=== PATIENT | male | born 1960 | race Caucasian/White ===

== ENCOUNTER 2025-03-01 16:00 | Emergency (ER) | payer OTHER ==
[2025-03-01] MEDS ORDERED: ASPIRIN 81 MG CHEWABLE TABLET ONE (16:49)
[2025-03-01 16:51] LABS: Absolute Basophils 0.1 K/uL (0-0.5); Absolute Eosinophils 0.3 K/uL (0-0.5); Absolute Lymphocytes (CBC) 1.2 K/uL (0.7-4.9); Absolute Monocytes 0.6 K/uL (0.1-1.3); Basophils % 1.4 % (0-1.3); Eosinophils % 4.1 % (0-4.4); Hematocrit 42.7 % (39.6-49.0); Hemoglobin 15.3 g/dL (13.6-17.9); MCH 31.3 pg (27.0-35.0); MCHC 35.8 g/dL (32.0-36.0); MCV 87.3 fL (80-100); MPV 7.8 fL (7.6-11.3); Monocytes % 8.5 % (3.3-12.3); Nucleated Red Blood Cells % 0.2 % (0-0); Platelets 200 thou/uL (152-406); RBC Red Blood Cell Count 4.89 M/uL (4.33-5.43); Red Cell Distribution Width 13.5 % (12.1-15.2)
[2025-03-01 17:08] LABS: Anion Gap 7.7 mEq/L (5.0-15.0); Magnesium 1.8 mg/dL (1.6-2.4); Potassium 3.7 mEq/L (3.5-5.1); Troponin High Sensitivity 3.9 pg/mL (<58.9)
--- NOTE | 2025-03-01 18:45 | RAD REPORT ---
EXAMINATION: ONE VIEW CHEST XR CLINICAL INDICATION: Male, 64 years old.,CHEST PAIN TECHNIQUE: Frontal chest projection is submitted. Examination is limited by patient positioning and t echnique. COMPARISON: No prior exam. FINDINGS: The lungs are grossly clear although suboptimal inspiratory effort somewhat limits evaluation. No pn eumothorax or sizable effusion. The heart is normal in size. Mediastinal contours are unremarkable. IMPRESSION: No acute intrathoracic abnormalities.
--- NOTE | 2025-03-01 19:11 | ER ---
Nurse's Notes [facility] Name: Enrico Flaherty Age: 64 yrs Sex: Male : 1960 Arrival Date: 03/01/2025 Time: 16:00 Bed 20 Private MD: Diagnosis: Pain in left shoulder;Pain in right shoulder Presentation: 03/01 16:35 Chief complaint: Patient states: CHEST PAIN TODAY. LAST HEART ATTACK 30 DAYS AGO WITH db STENT. Coronavirus screen: Client denies travel out of the [place] in the last 14 days. At this time, the client does not indicate any symptoms associated with coronavirus-19. Ebola Screen: Patient negative for fever greater than or equal to 101.5 degrees Fahrenheit, and additional compatible Ebola Virus Disease symptoms Patient denies exposure to infectious person. Patient denies travel to an Ebola-affected area in the 21 days before illness onset. No symptoms or risks identified at this time. Initial Sepsis Screen: Does the patient meet any 2 criteria? No. Patient's initial sepsis screen is negative. Does the patient have a suspected source of infection? No. Patient's initial sepsis screen is negative. Risk Assessment: Do you want to hurt yourself or someone else? Patient reports no desire to harm self or others. Onset of symptoms was March 01, 2025. 16:35 Method Of Arrival: Ambulatory db 16:35 Acuity: LARS 2 db Triage Assessment: 16:58 General: Appears in no apparent distress. db Historical: - Allergies: 16:58 No Known Allergies; db - Immunization history:: Adult Immunizations up to date. - Infectious Disease History:: Denies. - Social history:: Smoking status: Patient denies any tobacco usage or history of. Screenin:52 [facility] ED Fall Risk Assessment (Adult) History of falling in the last 3 months, mb9 including since admission No falls in past 3 months (0 pts) Confusion or Disorientation No (0 pts) Intoxicated or Sedated No (0 pts) Impaired Gait No (0 pts) Mobility Assist Device Used No (0 pt) Altered Elimination No (0 pt) Score/Fall Risk Level 0 - 2 = Low Risk Oriented to surroundings, Maintained a safe environment, Educated pt \T\ family on fall prevention, incl call for assistance when getting out of bed. Abuse screen: Denies threats or abuse. Nutritional screening: No deficits noted. Tuberculosis screening: No symptoms or risk factors identified. Assessment: 16:57 General: Appears in no apparent distress. Behavior is calm, cooperative. General:. mb9 Pain: Complains of pain in chest Pain radiates to left neck Quality of pain is described as tingling. Neuro: Hendrickson Agitation-Sedation Scale (RASS): 0 - Alert and Calm Level of Consciousness is awake, alert, obeys commands, Oriented to person, place, time, situation, Appropriate for age. Cardiovascular: Heart tones S1 S2 present Patient's skin is warm and dry. Cardiovascular: Reports chest pain. Respiratory: Airway is patent Respiratory effort is even, unlabored, Respiratory pattern is regular, symmetrical, Breath sounds are clear bilaterally. GI: Abdomen is round Bowel sounds present X 4 quads. Abd is soft and non tender X 4 quads. : No signs and/or symptoms were reported regarding the genitourinary system. EENT: No signs and/or symptoms were reported regarding the EENT system. Derm: Skin is pink, warm \T\ dry. Musculoskeletal: Range of motion: intact in all extremities. 18:00 Reassessment: No changes from previously documented assessment. Patient and/or family mb9 updated on plan of care and expected duration. Pain level reassessed. Patient is alert, oriented x 3, equal unlabored respirations, skin warm/dry/pink. 19:23 Reassessment: Patient states feeling better. Patient states symptoms have improved. rg5 General: Appears in no apparent distress. comfortable, Behavior is calm, cooperative, appropriate for age. Pain: Denies pain. Neuro: Level of Consciousness is awake, alert, obeys commands, Oriented to person, place, time, situation. Cardiovascular: Reports chest pain, Capillary refill < 3 seconds Patient's skin is warm and dry. Rhythm is sinus rhythm. Respiratory: Airway is patent Trachea midline Respiratory effort is even, unlabored, Respiratory pattern is regular, symmetrical. Vital Signs: 16:35 BP 125 / 76; Pulse 97; Resp 16; Pulse Ox 96% ; Weight 113.4 kg; Height 5 ft. 9 in. ; db 16:53 BP 137 / 88; Pulse 94; Resp 18; Pulse Ox 100% ; Weight 113.4 kg; Height 5 ft. 9 in. ; mb9 Pain 0/10; 18:31 BP 118 / 72; Pulse 89; Resp 18; Pulse Ox 100% on R/A; mb9 19:22 BP 121 / 90; Pulse 83; Resp 18; Pulse Ox 100% on R/A; Pain 0/10; rg5 16:53 Body Mass Index 36.92 (113.40 kg, 175.26 cm) mb9 16:53 Pain Scale: Adult mb9 19:22 Pain Scale: Adult rg5 ED Course: 16:06 Patient arrived in ED. gl 16:21 Joel White DO is Attending Physician. ms3 16:35 EKG done, by ED staff, reviewed by Joel White DO. mb9 16:44 Shabana Mitchell, LEODAN is Primary Nurse. mb9 16:46 Basic Metabolic Panel Sent. bc6 16:46 CBC with Diff Sent. bc6 16:46 Magnesium Sent. bc6 16:46 Troponin HS Sent. bc6 16:46 Initial lab(s) drawn, by ks, sent to lab. Inserted saline lock: 20 gauge in left bc6 antecubital area, using aseptic technique. Blood collected. Flushed with 10 mL NS. 16:52 Placed in gown. Bed in low position. Call light in reach. Side rails up X 1. Provided mb9 Education on: press call light if needing anything. Client placed on continuous cardiac and pulse oximetry monitoring. NIBP monitoring applied. coagulator on. 16:58 Triage completed. db 16:58 Arm band placed on. mb9 16:59 XRAY Chest (1 view) In Process Unspecified. EDMS 18:53 No provider procedures requiring assistance completed. mb9 19:10 Orville Alexis MD is Referral Physician. ms3 19:23 IV discontinued, bleeding controlled, No redness/swelling at site. Pressure dressing rg5 applied. Administered Medications: 16:56 Drug: Aspirin PO Chewable Tablet 324 mg PO once; 81 mg tablets x 4 Route: PO; mb9 18:53 Follow up: Response: No adverse reaction mb9 Medication: 16:53 VIS not applicable for this client. mb9 Outcome: 19:11 Discharge ordered by . ms3 19:30 Discharged to home ambulatory, rg5 19:30 Condition: stable 19:30 Instructed on discharge instructions, Demonstrated understanding of instructions, follow-up care, 19:32 Patient left the ED. rg5 Signatures: Dispatcher [employer] EDMS Joel White, DO ms3 Mayte Dubon RN RN db Paula, Shabana May RN RN mb9 Rachel Andino 6 Talon Nieto RN RN rg5 Eri Joe, Reg Reg gl Corrections: (The following items were deleted from the chart) 16:57 16:53 BP 137 / 88; Pulse 94bpm; Resp 18bpm; Pulse Ox 100%; mb9 mb9
--- NOTE | 2025-03-01 19:11 | EDPHYS ---
Physician Documentation [facility] Name: Enrico Flaherty Age: 64 yrs Sex: Male : 1960 Arrival Date: 03/01/2025 Time: 16:00 Bed 20 Private MD: ED Physician Joel White HPI: 03/01 20:28 This 64 yrs old Male presents to ER via Ambulatory with complaints of Numbness Of Arm, ms3 PREVIOUS HEART ATTACK. 20:28 64-year-old male with past medical history of myocardial infarction, hypertension, ms3 diabetes, peptic ulcer disease presents to the emergency department for right tingling in his chest, left neck pain and bilateral shoulder pain for 3 days. Patient states the discomfort is intermittent. Patient denies the pain at this time.. Historical: - Allergies: 16:58 No Known Allergies; db - Immunization history:: Adult Immunizations up to date. - Infectious Disease History:: Denies. - Social history:: Smoking status: Patient denies any tobacco usage or history of. ROS: 20:28 Constitutional: Negative for fever, and chills. Cardiovascular: Negative for chest ms3 pain, and palpitations. Respiratory: Negative for shortness of breath, cough, wheezing, and pleuritic chest pain, Abdomen/GI: Negative for abdominal pain, nausea, vomiting, diarrhea, and constipation, 20:28 MS/extremity: Positive for Bilateral shoulder pain, left neck pain, Exam: 20:28 Constitutional: This is a well developed, well nourished patient who is awake, alert, ms3 and in no acute distress. Cardiovascular: Regular rate and rhythm with a normal S1 and S2. No gallops, murmurs, or rubs. Normal PMI, no JVD. No pulse deficits. Respiratory: Lungs have equal breath sounds bilaterally, clear to auscultation and percussion. No rales, rhonchi or wheezes noted. No increased work of breathing, no retractions or nasal flaring. Abdomen/GI: Soft, non-tender, with normal bowel sounds. No distension or tympany. No guarding or rebound. No evidence of tenderness throughout. Skin: Warm, dry with normal turgor. Normal color with no rashes, no lesions, and no evidence of cellulitis. MS/ Extremity: Pulses equal, no cyanosis. Neurovascular intact. Full, normal range of motion. 20:40 ECG was reviewed by the Attending Physician. ms3 Vital Signs: 16:35 BP 125 / 76; Pulse 97; Resp 16; Pulse Ox 96% ; Weight 113.4 kg; Height 5 ft. 9 in. ; db 16:53 BP 137 / 88; Pulse 94; Resp 18; Pulse Ox 100% ; Weight 113.4 kg; Height 5 ft. 9 in. ; mb9 Pain 0/10; 18:31 BP 118 / 72; Pulse 89; Resp 18; Pulse Ox 100% on R/A; mb9 19:22 BP 121 / 90; Pulse 83; Resp 18; Pulse Ox 100% on R/A; Pain 0/10; rg5 16:53 Body Mass Index 36.92 (113.40 kg, 175.26 cm) mb9 16:53 Pain Scale: Adult mb9 19:22 Pain Scale: Adult rg5 MDM: 16:31 Medical Screening Exam initiated ms3 20:28 Differential diagnosis: tendonitis, SD versus pneumonia. Data reviewed: vital signs, ms3 nurses notes, lab test result(s), EKG, radiologic studies, and as a result, I will discharge patient. I considered the following discharge prescriptions or medication management in the emergency department Medications were administered in the Emergency Department. See MAR. Independent interpretation of the following test(s) in the Emergency Department EKG: See my EKG interpretation above. Counseling: I had a detailed discussion with the patient and/or guardian regarding the historical points, exam findings, and any diagnostic results supporting the discharge/admit diagnosis, lab results, radiology results, the need for outpatient follow up, to return to the emergency department if symptoms worsen or persist or if there are any questions or concerns that arise at home. Special discussion: Based on the patient's history, exam, and Dx evaluation, there is no indication for emergent intervention or inpatient Tx. It is understood by the patient/guardian that if the Sx's persist or worsen they need to return immediately for re-evaluation. ED course: Discussed labs, EKG, chest x-ray findings with patient. Patient to follow-up with primary care physician in 2 to 3 days. Patient understands and agrees with plan. All questions were answered. Return precautions discussed to include worsening symptoms, or any other concerns. On reevaluation patient is asymptomatic, alert and oriented x 4, no apparent distress, nontoxic-appearing, speaking full sentences.. 03/01 16:33 Order name: Basic Metabolic Panel; Complete Time: 18:50 ms3 03/01 16:33 Order name: CBC with Diff; Complete Time: 18:50 ms3 03/01 16:33 Order name: Magnesium; Complete Time: 18:50 ms3 03/01 16:33 Order name: Troponin HS; Complete Time: 18:50 ms3 03/01 16:33 Order name: XRAY Chest (1 view); Complete Time: 18:50 ms3 03/01 16:33 Order name: EKG; Complete Time: 16:33 ms3 03/01 16:33 Order name: Cardiac monitoring; Complete Time: 16:46 ms3 03/01 16:33 Order name: EKG - Nurse/Tech; Complete Time: 16:46 ms3 03/01 16:33 Order name: IV Saline Lock; Complete Time: 16:46 ms3 03/01 16:33 Order name: Labs collected and sent; Complete Time: 16:46 ms3 03/01 16:33 Order name: O2 Per Protocol; Complete Time: 16:46 ms3 03/01 16:33 Order name: O2 Sat Monitoring; Complete Time: 16:46 ms3 EC:40 Rate is 93 beats/min. Rhythm is regular. QRS [place] is Normal. MA interval is normal. QRS ms3 interval is normal. Clinical impression: NSR w/ Non-specific ST/T Changes. Interpreted by me. Reviewed by me. Administered Medications: 16:56 Drug: Aspirin PO Chewable Tablet 324 mg PO once; 81 mg tablets x 4 Route: PO; mb9 18:53 Follow up: Response: No adverse reaction mb9 Disposition Summary: 03/01/25 19:11 Discharge Ordered Notes: Location: Home ms3 Condition: Stable ms3 Diagnosis - Pain in left shoulder ms3 - Pain in right shoulder ms3 Followup: ms3 - With: Orville Alexis MD - When: 2 - 3 days - Reason: Recheck today's complaints Discharge Instructions: - Discharge Summary Sheet ms3 - Nonspecific Chest Pain, Adult ms3 - Shoulder Pain, [id number] ms3 Forms: - Medication Reconciliation Form ms3 - Antibiotic Education ms3 - Prescription Opioid Use ms3 - Patient Portal Instructions ms3 - Leadership Thank You Letter ms3 Signatures: Dispatcher [employer] EDMS WhiteJoel, DO ms3 Mayte Dubon RN RN db Shabana Mitchell RN RN mb9 Corrections: (The following items were deleted from the chart) 20:29 20:28 64-year-old male with past medical history of myocardial infarction, ms3 hypertension, diabetes, peptic ulcer disease presents to the emergency department for right tingling in his chest, left neck pain and bilateral shoulder pain. Patient states the discomfort is intermittent. Patient denies the pain at this time.. ms3
[2025-03-01 20:08] VITALS: BP 122/85; TEMP 97.3; O2SAT 95
--- OUTSIDE RECORDS SUMMARY | 2025-03-01 21:18 | XMS REPORT | Continuity of Care Document ---
Author Name Unknown Address [address] Address [address] [facility] 1 495 [place] [address] Care Team Providers Care Abrasive Band Winder Name Role Phone Rito Lockwood Attending Clinician Unavailable Rito Lockwood Admitting Clinician Unavailable Physician, No Primary or Family Admitting Clinic juan Unavailable Payers Payer Name Policy Type Policy Number Effective Date Expirati on Date Source Allergies, Adverse Reactions, Alerts Allergy Name Allergy Type Status Severity Reaction(s) Onset Date Inactive Date Treating Clinician Comments Source naproxen DA Active [place] BLEEDING ULCER 01-31 00:00: 00 [facility] naproxen DA Active U BLEEDING ULCER 01-30 00:00: 00 [facility] Procedures Procedure Date / Time Performed Performing Clinicia n Source GAIT TRAINING/AMBULAT TREATMENT USING ASSIST EQUIP 2025-01-31 00:00:00 [email or web address] [facility] DILATION OF 1 COR ART WITH DRUG-ELUT INTRA, PERC A 2025-01-30 00:00:00 [email or web address] [facility] DILATION OF CORONARY ARTERY, ONE ARTERY, PERC APPR 2025-01-30 00:00:00 [email or web address] [facility] MEASURE OF CARDIAC SAMPL PRESSURE, L HEART, PERC 2025-01-30 00:00:00 [email or web address] [facility] FLUOROSCOPY OF MULT COR ART USING L OSM CONTRAST 2025-01-30 00:00:00 [email or web address] [facility] Encounters Start Date/Time End Date/Time Encounter Type Admission Type Attending Clinicians Care Facility Care Department Encounter ID Source 2025-01-30 19:42:00 2025-02-01 11:29:00 Inpatient EM Rito Lockwood HCAPM INTE [id number] [facility] 2025-01-31 05:26:00 2025-01-31 05:26:00 Outpatient Rito Lockwood HCACL LABO [id number] [facility] Results Test Description Test Time Test Comments Results Result Co mments Source BASIC METABOLIC [id number] 03:49:00* Test Item Value Reference Range Interpretation Comme nts SODIUM (test code = NA) 138 mmol/L 136-145 N POTASSIUM (test code = K) 3.9 mmol/L 3.4-5.0 N CHLORIDE (test code = CL) 102 mmol/L 98-107 N CARBON DIOXIDE (test code = CO2) 25 mmol/L 21-32 N ANION GAP (test code = GAP) 11 GAP calc 4-15 N GLUCOSE (test code = GLU) 152 MG/DL 70-110 H BLOOD UREA NITROGEN (test code = BUN) 14 MG/DL 7-18 N GLOMERULAR FILTRATION RATE (test code = GFR) >=60 max estimate estGFR >60 The Glomerular Filtration Rate is a calculated parameterbased on serum Creatinine, patient age and sex. GFR valuesless than 60 mL/min/1.73 square meters are indicative ofChronic Kidney Disease. Values less than 15 mL/min/1.73square meters indicate Kidney failure. The calculation forGFR is based on the CKD-EPI (2020) calculation. This formulais race indifferent and is the recommended formula for GFRby the National Kidney Foundation for Adults.The GFR will not calculate if the sex is unknown or if thepatient's age is <18 years. CREATININE (test code = CREAT) 1.1 MG/DL 0.6-1.0 H CALCIUM (test code = CA) 8.9 MG/DL 8.5-10.1 N [id number] 03:49:00* Test Item Value Reference Range Interpretation Comme nts PHOSPHOROUS (test code = PHOS) 4.4 MG/DL 2.5-4.9 N [id number] 03:49:00* Test Item Value Reference Range Interpretation Comme nts MAGNESIUM (test code = MAG) 2.3 MG/DL 1.8-2.4 N CBC W/AUTO [id number] 03:39:00* Test Item Value Reference Range Interpretation Comme nts WHITE BLOOD CELL (test code = WBC) 7.8 K/mm3 3.5-11.0 N RED BLOOD CELL (test code = RBC) 4.53 M/mm3 4.70-6.10 L HEMOGLOBIN (test code = HGB) 14.1 G/DL 12.3-15.9 N HEMATOCRIT (test code = HCT) 40.6 % 35.8-46.7 N MEAN CELL VOLUME (test code = MCV) 89.6 Fl 86.3-98.9 N MEAN CELL HGB (test code = MCH) 31.1 pg 28.9-34.4 N MEAN CELL HGB CONCETRATION (test code = MCHC) 34.7 G/DL 32.1-34.5 H RED CELL DISTRIBUTION WIDTH (test code = RDW) 12.4 SD 11.5-14.5 N PLATELET COUNT (test code = PLT) 219 K/mm3 150-450 N MEAN PLATELET VOLUME (test c ode = MPV) 10.20 fL 7.0-9.6 H NEUTROPHIL % (test code = NT%) 68.6 % 40-76 N IMMATURE GRANULOCYTE % (test code = IG%) 0.6 % 0.0-5.0 N LYMPHOCYTE % (test code = LY%) 19.0 % 20.5-51.1 L MONOCYTE % (test code = MO%) 8.4 % 1.7-9.3 N EOSINOPHIL % (test code = EO%) 2.8 % 0.0-6.0 N BASOPHIL % (test code = BA%) 0.6 % 0.0-2.0 N NUCLEATED RBC % (test code = NRBC%) 0.0 /100WBC% 0.0-1.0 N NEUTROPHIL # (test code = NT#) 5.3 K/mm3 1.8-7.6 N IMMATURE GRANULOCYTE # (test code = IG#) 0.05 x10 3/uL 0.00-0.03 H LYMPHOCYTE # (test code = LY#) 1.5 K/mm3 0.6-3.0 N MONOCYTE # (test code = MO#) 0.7 K/mm3 0.2-1.5 N EOSINOPHIL # (test code = EO#) 0.2 K/mm3 0.0-0.4 N BASOPHIL # (test code = BA#) 0.1 K/mm3 0.0-0.2 N NUCLEATED RBC # (test code = NRBC#) 0.0 K/mm3 0.00-0.01 N GLUCOSE BEDSIDE [id number] 20:45:00* Test Item Value Reference Range Interpretation Comme nts GLUCOSE BEDSIDE TESTING (michael t code = GLUBED) 171 mg/dL 70-110 H GLUCOSE BEDSIDE [id number] 17:37:00* Test Item Value Reference Range Interpretation Comme nts GLUCOSE BEDSIDE TESTING (michael t code = GLUBED) 129 mg/dL 70-110 H GLUCOSE BEDSIDE [id number] 12:13:00* Test Item Value Reference Range Interpretation Comme nts GLUCOSE BEDSIDE TESTING (imchael t code = GLUBED) 124 mg/dL 70-110 H GLUCOSE BEDSIDE [id number] 08:05:00* Test Item Value Reference Range Interpretation Comme nts GLUCOSE BEDSIDE TESTING (michael t code = GLUBED) 186 mg/dL 70-110 H CBC W/AUTO [id number] 01:51:00* Test Item Value Reference Range Interpretation Comme nts WHITE BLOOD CELL (test code = WBC) 10.9 K/mm3 3.5-11.0 N RED BLOOD CELL (test code = RBC) 4.52 M/mm3 4.70-6.10 L HEMOGLOBIN (test code = HGB) 13.9 G/DL 12.3-15.9 N HEMATOCRIT (test code = HCT) 40.0 % 35.8-46.7 N MEAN CELL VOLUME (test code = MCV) 88.5 Fl 86.3-98.9 N MEAN CELL HGB (test code = MCH) 30.8 pg 28.9-34.4 N MEAN CELL HGB CONCETRATION (test code = MCHC) 34.8 G/DL 32.1-34.5 H RED CELL DISTRIBUTION WIDTH (test code = RDW) 12.3 SD 11.5-14.5 N PLATELET COUNT (test code = PLT) 207 K/mm3 150-450 N MEAN PLATELET VOLUME (test c ode = MPV) 10.20 fL 7.0-9.6 H NEUTROPHIL % (test code = NT%) 72.9 % 40-76 N IMMATURE GRANULOCYTE % (test code = IG%) 0.6 % 0.0-5.0 N LYMPHOCYTE % (test code = LY%) 15.1 % 20.5-51.1 L MONOCYTE % (test code = MO%) 9.6 % 1.7-9.3 H EOSINOPHIL % (test code = EO%) 1.4 % 0.0-6.0 N BASOPHIL % (test code = BA%) 0.4 % 0.0-2.0 N NUCLEATED RBC % (test code = NRBC%) 0.0 /100WBC% 0.0-1.0 N NEUTROPHIL # (test code = NT#) 8.0 K/mm3 1.8-7.6 H IMMATURE GRANULOCYTE # (test code = IG#) 0.07 x10 3/uL 0.00-0.03 H LYMPHOCYTE # (test code = LY#) 1.7 K/mm3 0.6-3.0 N MONOCYTE # (test code = MO#) 1.1 K/mm3 0.2-1.5 N EOSINOPHIL # (test code = EO#) 0.2 K/mm3 0.0-0.4 N BASOPHIL # (test code = BA#) 0.0 K/mm3 0.0-0.2 N NUCLEATED RBC # (test code = NRBC#) 0.0 K/mm3 0.00-0.01 N [id number] 01:13:00* Test Item Value Reference Range Interpretation Comme nts GLYCOSYLATED HEMOGLOBIN (HA1 C) (test code = GLYHGB) 6.5 % A1C 4.8-6.0 H ESTIMATED AVERAGE GLUCOSE (t est code = EAG) 140 MG/DLest COMPREHENSIVE METABOLIC [id number] 01:12:00* Test Item Value Reference Range Interpretation Comme nts SODIUM (test code = NA) 136 mmol/L 136-145 N POTASSIUM (test code = K) 3.7 mmol/L 3.4-5.0 N CHLORIDE (test code = CL) 99 mmol/L 98-107 N CARBON DIOXIDE (test code = CO2) 28 mmol/L 21-32 N ANION GAP (test code = GAP) 9 GAP calc 4-15 N GLUCOSE (test code = GLU) 146 MG/DL 70-110 H BLOOD UREA NITROGEN (test code = BUN) 13 MG/DL 7-18 N GLOMERULAR FILTRATION RATE (test code = GFR) >=60 max estimate estGFR >60 The Glomerular Filtration Rate is a calculated parameterbased on serum Creatinine, patient age and sex. GFR valuesless than 60 mL/min/1.73 square meters are indicative ofChronic Kidney Disease. Values less than 15 mL/min/1.73square meters indicate Kidney failure. The calculation forGFR is based on the CKD-EPI (2020) calculation. This formulais race indifferent and is the recommended formula for GFRby the National Kidney Foundation for Adults.The GFR will not calculate if the sex is unknown or if thepatient's age is <18 years. CREATININE (test code = CREAT) 0.9 MG/DL 0.6-1.0 N TOTAL PROTEIN (test code = PROT) 6.7 G/DL 6.4-8.2 N ALBUMIN (test code = ALB) 3.6 G/DL 3.4-5.0 N GLOBULIN (test code = GLOB) 3.1 GM/dL ALBUMIN/GLOBULIN RATIO (test code = A/G) 1.2 RATIO 1.2-2.2 N CALCIUM (test code = CA) 8.5 MG/DL 8.5-10.1 N BILIRUBIN TOTAL (test code = BILT) 1.2 MG/DL 0.0-1.0 H SGOT/AST (test code = AST) 23 Unit/L 15-37 N SGPT/ALT (test code = ALT) 39 Unit/L 30-65 N ALKALINE PHOSPHATASE TOTAL (test code = ALKP) 103 Unit/L 50-136 N LIPID PROFILE (CORONARY RISK)2025-01-31 01:12:00* Test Item Value Reference Range Interpretation Comme nts TRIGLYCERIDES (test code = TRIG) 213 MG/DL 0-150 H CHOLESTEROL (test code = CHOL) 129 MG/DL 133-200 L CHOLESTEROL/HDL RATIO (test code = CHOLHDL) 2.48 RATIO See_Comment RISK ASSOC IATED WITH CHOL/HDL RATIOS: RISK MALE FEMALE1/2 AVERAGE 3.43 3.27AVERAGE 4.97 4.442X AVERAGE 9.55 7.053X AVERAGE 23.39 11.04 NOTE THAT THE REFERENCE VALUE IS RELATED TO RISK LEVELS ASRECOMMENDED BY THE [facility]ATIONAL [facility]. [Automated message] The system which generated this result transmitted reference range: 0-. The reference range was not used to interpret this result as normal/abnormal. HDL CHOLESTEROL (test code = HDL) 52 MG/DL See_Comment L [Automated activ8 [employer]a [facility]] The system which generated this result transmitted reference range: 60-. The reference range was not used to interpret this result as normal/abnormal. NON-HDL CHOLESTEROL (test code = NHDL) 77 mg/dL <130 LIPOPROTEIN LDL (test code = LDL) 57 MG/DL 0-129 N LDL/HDL (test code = LDL/HDL) 1.09 Ratio See_Comment L [Automated [employer]] The system which generated this result transmitted reference range: 1.48-3.22 Avg. The reference range was not used to interpret this result as normal/abnormal. [id number] 01:12:00* Test Item Value Reference Range Interpretation Comme nts PHOSPHOROUS (test code = PHOS) 3.5 MG/DL 2.5-4.9 N [id number] 01:12:00* Test Item Value Reference Range Interpretation Comme nts MAGNESIUM (test code = MAG) 1.6 MG/DL 1.8-2.4 L COAGULATION TIME [id number] 20:27:00* Test Item Value Reference Range Interpretation Comme nts COAGULATION TIME ACTIVATED ( test code = ACT) 292 SEC 110-182 H COAGULATION TIME [id number] 20:02:00* Test Item Value Reference Range Interpretation Comme nts COAGULATION TIME ACTIVATED ( test code = ACT) 361 SEC 110-182 H PROTHROMBIN [id number] 19:40:00* Test Item Value Reference Range Interpretation Comme nts PT PATIENT (test code = PTP) 10.6 SECONDS 9.3-12.9 N INTERNATIONAL NORMAL RATIO (test code = INR) 0.95 INR Unit 0.8-1.2 N TARGET INR BY INDICATION Indication INR1. Prophylaxis of venous thrombosis 2.0 - 3.0 (orthopedic surgery), Prophylaxis of venous thrombosis (other than high-risk surgery), Treatment of Deep Vein Thrombosis/Pulmonary Embolism, Prevention of systemic embolism - Tissue heart valves, Acute Myocardial Infarction (to prevent systemic embolism), Valvular heart disease, Acute Myocardial Infarction (to prevent systemic embolism), Valvular heart disease, Atrial Fibrillation, Bileaflet mechanical valve in aortic position.2. Mechanical prosthetic valves (high risk), 2.5 - 3.5 Presence of Lupus Anticoagulant or Antiphospholipid Antibodies, Prevention of systemic embolism - Acute Myocardial Infarction (to prevent recurrent infarct). THROMBOPLASTIN TIME [id number] 19:40:00* Test Item Value Reference Range Interpretation Comme nts THROMBOPLASTIN TIME PARTIAL (test code = PTT) 28.7 SECONDS 26-35 N BASIC METABOLIC [id number] 19:35:00* Test Item Value Reference Range Interpretation Comme nts SODIUM (test code = NA) 138 mmol/L 136-145 N POTASSIUM (test code = K) 4.0 mmol/L 3.4-5.0 N CHLORIDE (test code = CL) 99 mmol/L 98-107 N CARBON DIOXIDE (test code = CO2) 31 mmol/L 21-32 N ANION GAP (test code = GAP) 8 GAP calc 4-15 N GLUCOSE (test code = GLU) 154 MG/DL 70-110 H BLOOD UREA NITROGEN (test code = BUN) 15 MG/DL 7-18 N GLOMERULAR FILTRATION RATE (test code = GFR) >=60 max estimate estGFR >60 The Glomerular Filtration Rate is a calculated parameterbased on serum Creatinine, patient age and sex. GFR valuesless than 60 mL/min/1.73 square meters are indicative ofChronic Kidney Disease. Values less than 15 mL/min/1.73square meters indicate Kidney failure. The calculation forGFR is based on the CKD-EPI (2020) calculation. This formulais race indifferent and is the recommended formula for GFRby the National Kidney Foundation for Adults.The GFR will not calculate if the sex is unknown or if thepatient's age is <18 years. CREATININE (test code = CREAT) 1.0 MG/DL 0.6-1.0 N CALCIUM (test code = CA) 8.9 MG/DL 8.5-10.1 N CREATINE KINASE (CK)2025-01-30 19:35:00* Test Item Value Reference Range Interpretation Comme nts CREATINE KINASE (CK) (test c ode = CK) 81 Unit/L 21-215 N TROP-I HIGH [id number] 19:35:00* Test Item Value Reference Range Interpretation Comme nts TROP-I HIGH SENSITIVITY (test code = TROPIHS) 6.2 ng/L 0-78 N CAUTION: Units o f the current test methodology (ng/L) differfrom the prior test methodology (ng/mL) by a factor of 1000. 99th Percentile Upper Reference Limit (URL):Females: 54 ng/LMales: 79 ng/L In order to distinguish acute elevations of high sensitivitytroponin from other clinical conditions, the FourthUniversal Definition of Myocardial Infarction stressesclinical assessment and the demonstration of a rise and/orfall in serial troponin results above the URL. Results from different methodologies should not be comparedto one another as quantitative results and URLs may varyby method. CBC W/O [id number] 19:19:00* Test Item Value Reference Range Interpretation Comme nts WHITE BLOOD CELL (test code = WBC) 14.6 K/mm3 3.5-11.0 H RED BLOOD CELL (test code = RBC) 4.86 M/mm3 4.70-6.10 N HEMOGLOBIN (test code = HGB) 15.3 G/DL 12.3-15.9 N HEMATOCRIT (test code = HCT) 43.6 % 35.8-46.7 N MEAN CELL VOLUME (test code = MCV) 89.7 Fl 86.3-98.9 N MEAN CELL HGB (test code = MCH) 31.5 pg 28.9-34.4 N MEAN CELL HGB CONCETRATION ( test code = MCHC) 35.1 G/DL 32.1-34.5 H RED CELL DISTRIBUTION WIDTH (test code = RDW) 12.2 SD 11.5-14.5 N PLATELET COUNT (test code = PLT) 221 K/mm3 150-450 N MEAN PLATELET VOLUME (test c ode = MPV) 10.00 fL 7.0-9.6 H Notes Date/Time Note Provider Source 2025-02-01 08:45:00 [facility] ([facility]) Pulmonology Progress Note REPORT#:[id number] REPORT STATUS: Signed REPORT INITIALIZATION DATE:02/01/25 TIME:844 PATIENT: SHERIDAN HEATON UNIT #: [id number] ROOM/BED: [place] [id number] : 60 AGE: 64 SEX: M ATTEND: Rito Lockwood MD ADM AUTHOR: Forrest Sanchez MD REPT SERVICE DT/TIME: 02/01/25 0845 * ALL edits or amendments must be made on the electronic/computer document * Subjective Chief complaint: no chest pain No distress HPI: 64-year-old obese male with past medical history of hypertension, diabetes, ROBERT, pericarditis (2009), GI bleed/gastric ulcer, CAD s/p stent(2019), IBS-D and hyperlipidemia presented as a transfer from [facility] for management of high risk chest pain. Patient reports developing left-sided squeezing chest pain with radiation to left side of neck that began at around 6: 30 AM. Pain was also pleuritic. States it felt similar to his previous episode of pericarditis. . Patient reports having left-sided neck spasms intermittently for the last few weeks. Denies shortness of breath, Cath done and PCI left circiumflex Review of Systems ROS All systems rev neg: except as marked Objective General VS/I O: Last Documented: Result Date Time Temp 36.7 02/01 0700 Pulse Ox 96 02/01 0700 B/P 93/52 02/01 0700 B/P Mean 66 02/01 0700 Pulse 71 02/01 0700 FiO2 21 02/01 0642 O2 Delivery Room air 02/01 0642 Resp 24 01/30 2215 O2 Flow Rate 2 01/30 1931 24 hour I O ending at 0700: 02/01 0700 01/31 1900 Intake Total 1000 1100 Output Total Balance 1000 1100 Intake, Free Water Intake, IV Intake, Oral 1000 1100 Intake, Tube Feeding Number 1 Bowel Movements Number Voids 1 4 Output, Urine PATIENT WEIGHT: Weight (lb): Weight (oz): Weight (kg): 118.182 Medications: Active Meds + DC'd Last 24 Hrs Famotidine (PEPCID) 20 MG DAILY PO Dextrose (GLUCOSE) 4 GM ASDIR PRN PO Dextrose/Water (DEXTROSE 10% IN WATER 250 ML) 250 ML ASDIR IV Glucagon (GLUCAGON) 1 MG ASDIR PRN IM Colchicine (COLCRYS) 0.6 MG BID PO Heparin Sodium (Porcine) (HEPARIN SODIUM) 5,000 UNIT Q12H SUBQ Carvedilol (COREG) 12.5 MG Q12HR PO Lisinopril (ZESTRIL) 10 MG Q12HR PO Aspirin (ECOTRIN) 81 MG DAILY PO Clopidogrel Bisulfate (Plavix) 75 MG DAILY PO Dapagliflozin (Farxiga) 10 MG DAILY PO Folic Acid (FOLIC ACID) 1 MG DAILY PO Glipizide (GLUCOTROL) 5 MG DAILY PO Multivitamins Therapeutic (THERAGRAN) 1 TAB DAILY PO Mupirocin (BACTROBAN) 1 APPLIC BID NASAL Pantoprazole (PROTONIX) 40 MG DAILY PO (DC) Thiamine HCl (THIAMINE) 100 MG DAILY PO Insulin Human Lispro (Admelog) 0 AC HS SUBQ Perflutren Lipid Microsphere (DEFINITY) 2 ML ONCE PRN IV (CKD) Nitroglycerin (NITROSTAT) 0.4 MG Q5M PRN PRN SL Magnesium Oxide (MAG-OX 400) 1,200 MG ASDIR PRN PO (CKD) Magnesium Sulfate (MAGNESIUM SULFATE 2 G IN SWFI 50 ML) 50 ML ASDIR PRN IV Magnesium Sulfate (MAGNESIUM SULFATE) 4 GM ASDIR PRN IV Sodium Chloride (SODIUM CHLORIDE 0.9%) 100 ML Phosphorus (K-PHOS NEUTRAL) 1,500 MG ASDIR PRN PO Phosphorus (K-PHOS NEUTRAL) 2,000 MG ASDIR PRN PO Potassium Chloride (POTASSIUM CHLORIDE 10 MEQ/SWFI 50 ML) 50 ML ASDIR PRN IV Potassium Chloride (KCL 20 MEQ/SWFI 100 ML) 100 ML ASDIR PRN IV Potassium Chloride (KCL 20 MEQ/SWFI 100 ML) 100 ML ASDIR PRN IV Potassium Chloride (KCL 20 MEQ/SWFI 100 ML) 100 ML ASDIR PRN IV Potassium Chloride (K-DUR 20 mEq) 20 MEQ ASDIR PRN PO Potassium Chloride (K-DUR 20 mEq) 40 MEQ ASDIR PRN PO Potassium Phosphate (POTASSIUM PHOSPHATE) 20 MMOL ASDIR PRN IV Sodium Chloride (SODIUM CHLORIDE 0.9%) 250 ML Potassium Phosphate (POTASSIUM PHOSPHATE) 30 MMOL ASDIR PRN IV Sodium Chloride (SODIUM CHLORIDE 0.9%) 250 ML Sodium Biphosphate (SODIUM PHOSPHATE) 20 MMOL ASDIR PRN IV Sodium Chloride (SODIUM CHLORIDE 0.9%) 250 ML Sodium Biphosphate (SODIUM PHOSPHATE) 30 MMOL ASDIR PRN IV Sodium Chloride (SODIUM CHLORIDE 0.9%) 250 ML Sodium Phosphate (SODIUM PHOS 15 MMOL/ NS 250ML) 250 ML ASDIR PRN IV Undefined Medication (POTASSIUM PHOS 15 MMOL/ NS 250ML) 250 ML ASDIR PRN IV Acetaminophen (TYLENOL) 650 MG Q4H PRN PRN PO Hydrocodone Bitart/Acetaminophen (NORCO 5/325) 1 TAB Q6H PRN PRN PO Melatonin (Melatonin) 3 MG BEDTIME PRN PRN PO Ondansetron HCl (ZOFRAN) 4 MG Q6H PRN PRN IV Atorvastatin Calcium (LIPITOR) 80 MG BEDTIME PO Physical Exam General appearance: alert, awake ENT: ENT: normal ear right, normal nose, normal pharynx, normal sinus Neck: full range of motion, non-tender, supple/no meningismus, no JVD Respiratory/chest: clear to auscultation, no distress, no tenderness Abdomen: soft, non-tender, normal bowel sounds, no distention Extremities: no calf tenderness, no edema Results Findings/Data: Laboratory Tests 02/01/25 0305: [Embedded Image Not Available] Laboratory Tests 02/01 02/01 01/31 01/31 01/31 0738 0305 2037 1657 1159 Chemistry Sodium (136 - 145 mmol/L) 138 Potassium (3.4 - 5.0 mmol/L) 3.9 Chloride (98 - 107 mmol/L) 102 Carbon Dioxide (21 - 32 mmol/L) 25 Anion Gap (4 - 15 GAP calc) 11 BUN (7 - 18 MG/DL) 14 Creatinine (0.6 - 1.0 MG/DL) 1.1 H Glomerular Filtr Rate (>60 >=60 max estimate estGFR) Glucose (70 - 110 MG/DL) 152 H POC Glucose (70 - 110 mg/dL) 145 H 171 H 129 H 124 H Calcium (8.5 - 10.1 MG/DL) 8.9 Phosphorus (2.5 - 4.9 MG/DL) 4.4 Magnesium (1.8 - 2.4 MG/DL) 2.3 Laboratory Tests 02/01 0305 Hematology WBC (3.5 - 11.0 K/mm3) 7.8 RBC (4.70 - 6.10 M/mm3) 4.53 L Hgb (12.3 - 15.9 G/DL) 14.1 Hct (35.8 - 46.7 %) 40.6 MCV (86.3 - 98.9 Fl) 89.6 MCH (28.9 - 34.4 pg) 31.1 MCHC (32.1 - 34.5 G/DL) 34.7 H RDW (11.5 - 14.5 SD) 12.4 Plt Count (150 - 450 K/mm3) 219 MPV (7.0 - 9.6 fL) 10.20 H Neut % (Auto) (40 - 76 %) 68.6 Lymph % (Auto) (20.5 - 51.1 %) 19.0 L [place] % (Auto) (1.7 - 9.3 %) 8.4 Eos % (Auto) (0.0 - 6.0 %) 2.8 Baso % (Auto) (0.0 - 2.0 %) 0.6 Neut # (Auto) (1.8 - 7.6 K/mm3) 5.3 Lymph # (Auto) (0.6 - 3.0 K/mm3) 1.5 [place] # (Auto) (0.2 - 1.5 K/mm3) 0.7 Eos # (Auto) (0.0 - 0.4 K/mm3) 0.2 Baso # (Auto) (0.0 - 0.2 K/mm3) 0.1 Abs Immat Gran (auto) (0.00 - 0.03 x10 3/uL) 0.05 H Immature Gran % (0.0 - 5.0 %) 0.6 Nucleated RBC % (0.0 - 1.0 /100WBC%) 0.0 Diagnosis, Assessment Plan Free Text A P: 1.STEMI 2. DM 3. ROBERT on CPAP 13 cm H2O 4. HTN Seen examined patient SP STEnt DG to Tele PTOT fully independant plavix , ASA Start lovenox DG to IMU BIPAP QHS Quality: Gen Med Crit Care VTE Prophylaxis VTE prophylaxis initiated: yes, no pharmacologic, reason: Current Medications Current medication review: I attest that the foregoing medication list in the medical record is true, accurate, and complete to the best of my knowledge. BMI Screening > 25 or < 18.5 BMI status/follow-up: abnl BMI, pt to F/U w/PCP at 0923 RPT #: [id number] END OF RE[facility] 2025-02-01 08:43:00 [facility] ([facility]) Hospitalist Discharge Summary REPORT#:[id number] REPORT STATUS: Signed REPORT INITIALIZATION DATE:02/01/25 TIME:842 PATIENT: SHERIDAN HEATON UNIT #: [id number] ROOM/BED: [place] [id number] : 60 AGE: 64 SEX: M ATTEND: Rito Lockwood MD ADM AUTHOR: Rito Lockwood MD REPT SERVICE DT/TIME: 02/01/25 0843 * ALL edits or amendments must be made on the electronic/computer document * General Information Problem List/A P: 1. STEMI (ST elevation myocardial infarction) 2. Chest pain Discharge date: 02/01/25 Discharge diagnosis: CAD STEMI Status post PCI Hypertension Hospital course: #STEMI s/p PCI with stent to Left circumflex and PTCA of left circumflex and RPDA #Hx of CAD/WA s/p PCI with stent(2019) #Chest pain Cardiology consulted in ED, patient sent emergently for cath with stent placement and angioplasty done. Full Op note pending Admit to ICU for post cardiac cath protocol. Makeup Sales Advisor consulted Pt took nitro at home. Given ASA 324mg and Plavix at previous facility Resume statin and ASA 81mg. Start Plavix and Coreg per Cardiology Initial EKG without STEMI at other facility. EKG here showed ST elevation in lead II andV6 PRN nitro or [place]and[place] for pain Order hgbA1c and lipid panel Keep on telemetry Chest xray from outside facility with no acute significant findings #HX of GI bleed/gastric ulcer Pt with GI bleed 2 months ago. He has been back on his ASA 81mg since then Resume PPI Pt counseled on addition of Plavix to his ASA due to stent placement. Increased risk of bleeding and benefits due to stent placement/acute [place] discussed. Pt agreeable to being on Plavix and ASA and understands he needs to seek medical attention of signs of GI bleed noted. Pt to coordinate outpatient care on this with his Watch Caser and GI. #Hypertension Pt on Lisinopril and metoprolol at home. Hold home doses and continue current meds as started by Cardiology: Coreg and Lisinopril PRN hydralazine for elevated BP #DM type 2 Resume Glipizide. Start SSI Pt on Ozempic Order hgbA1c #HLD Resume statin #IBS-D Resume questran #ROBERT Cpap use at night #Obesity Collaborative Physician on diet and lifestyle modifications Pt on Ozempic #Tobacco use 1 cigar per week. Collaborative Physician cessation Declines nicotine patch #Alcohol dependence Drinks daily Collaborative Physician cessation Start thiamine, folic acid and multivitamin Monitor for signs of withdrawal Appreciate help from Cardiology S/p PCI He responded well to treatment and is being discharged to home today in a stable condition with an advise to follow up with PCP in 1 week and also with Cardiology in 1 week Free Text DxA P Notes Free text DxA P notes: Assessment/Plan Med Rec Med Rec Discharge meds: Stop taking the following medications: PANTOPRAZOLE DR (PROTONIX) 40 MG TAB.DR 40 MILLIGRAM ORAL DAILY. LISINOPRIL (ZESTRIL) 2.5 MG TAB 2.5 MILLIGRAM ORAL DAILY. METOPROLOL TARTRATE (LOPRESSOR) 50 MG TAB 50 MILLIGRAM ORAL ONE TIME ONLY. Continue taking these medications: NITROGLYCERIN (NITROSTAT) 0.3 MG TAB.SL 0.3 MILLIGRAM SUBLINGUAL EVERY 5 MINUTES NEEDED. as needed for CHEST PAIN CHOLESTYRAMINE/ASPARTAME (PREVALITE) 4 GRAM POWDER 2 GRAM ORAL ONCE A DAY SEMAGLUTIDE (OZEMPIC PEN (2 MG/3mL)) 2 MG/3 ML PEN.INJCTR 0.25 MILLIGRAM SUBCUTANEOUS EVERY 7 DAYS. glipiZIDE (GLUCOTROL) 5 MG TAB 5 MILLIGRAM ORAL DAILY. ATORVASTATIN (LIPITOR) 80 MG TAB 80 MILLIGRAM ORAL DAILY. Start taking the following new medications: CLOPIDOGREL (PLAVIX) 75 MG TAB 75 MILLIGRAM ORAL DAILY. Days = 30 Qty = 30 No Refills COLCHICINE (COLCHICINE) 0.6 MG TAB 0.6 MILLIGRAM ORAL TWICE DAILY. Qty = 30 No Refills CARVEDILOL (carvediloL) 12.5 MG TAB 12.5 MILLIGRAM ORAL EVERY 12 HOURS. Qty = 60 No Refills LISINOPRIL (ZESTRIL) 10 MG TAB 10 MILLIGRAM ORAL EVERY 12 HOURS. Qty = 60 No Refills FAMOTIDINE (PEPCID) 20 MG TAB 20 MILLIGRAM ORAL DAILY. Qty = 30 No Refills Dapagliflozin Propanediol (FARXIGA) 10 MG TAB 10 MILLIGRAM ORAL DAILY. Qty = 30 No Refills FOLIC ACID (FOLIC ACID) 1 MG TAB 1 MILLIGRAM ORAL DAILY. Qty = 30 No Refills THIAMINE (VITAMIN B-1) 100 MG TAB 100 MILLIGRAM ORAL DAILY. Qty = 30 No Refills Objective VS/I O Last Documented: Result Date Time Temp 98.0 02/01 0700 Pulse Ox 96 02/01 0700 B/P 93/52 02/01 0700 B/P Mean 66 02/01 0700 Pulse 71 02/01 0700 FiO2 21 02/01 0642 O2 Delivery Room air 02/01 0642 Resp 24 01/30 2215 O2 Flow Rate 2 01/30 1931 General appearance: alert, awake Head/Eyes: atraumatic, normal conjunctiva/sclera, normocephalic, PERRL ENT: moist mucosal membranes, normal ear left, normal ear right, normal nose Neck: non-tender, supple/no meningismus, no masses or swelling Cardiovascular: normal capillary refill, normal heart sounds, regular rate rhythm Respiratory: aerating well, clear to auscultation, symmetric expansion, no distress Abdomen: non-tender, normal bowel sounds, soft, no guarding Extremities: moves all, no calf tenderness, no cyanosis Musculoskeletal: normal inspection, no CVA tenderness, no muscle spasm Neuro/BUTTONHOLE MAKER: alert, oriented X 3, normal speech, no motor deficits, no sensory deficits Skin: dry, normal color, normal temperature, dressing clean and intact in right groin Psychiatry: normal affect, normal judgment/insight, normal mood Discharge Instructions PCP Discharge to: Home/Self Care Additional Discharge Routines: PCP Follow-Up, [employer] [employer] Operator Follow-Up Diet: Resume Home Diet/Feeds Discharge management: greater than 30 mins Follow-up Appointments PCP follow-up: PCP: No Primary or Family Physician PCP follow up timeframe: In 1-2 weeks Consulting provider 1: Provider 1: Alfie Davis MD Specialty: CardiologyInterventional Consult follow up timeframe: In 1-2 weeks Quality: Discharge Current Medications Current medication review: I attest that the foregoing medication list in the medical record is true, accurate, and complete to the best of my knowledge. BMI Screening > 25 or < 18.5 BMI status/follow-up: abnl BMI, pt to F/U w/PCP at [address] [place] [address] #: [phone] END OF REPORT [facility] 2025-01-31 16:05:00 [id number] [facility] [address] [place] [address] PATIENT NAME: SHERIDAN HEATON ADMIT DATE: 01/30/25 ACCOUNT NO: [id number] ROOM NO: L.ICU02 AGE: 64 REPORT TYPE: eECHOCARDIOGRAM REPORT SEX: M ADMITTING PHYSICIAN: Rito Lockwood MD ATTENDING PHYSICIAN: Rito Lockwood MD *[facility]* [address] [place] [id number] Transthoracic Echocardiogram Patient: Sheridan Heaton Study Date: 01/31/2025 BP: 125 / 74 URN: [id number] Location: : 1960 Age: 64 Gender: M Height: 68.9 in / 175 cm Weight: 260.4 lb / 118.1 kg BMI/BSA: 38.6 kg/m 2 / 2.45 m 2 *Ordering Physician: * Teresa Calvo Pa-C *Interpreting Physician: * Alfie Davis MD *Manager Location: * Nandini Garcia Indications: ACS. Study data: Transthoracic echocardiogram. Procedure: A transthoracic echocardiogram was performed. Image quality was adequate. The study was technically limited due to body habitus. Intravenous contrast (Definity) was administered. Complete 2D, complete spectral Doppler, and color Doppler. Location: ICU Patient status: Inpatient. Patient room number: ICU2. Study status: Routine. Heart rate: 85 bpm. Findings Left ventricle: The cavity size is normal. Wall thickness is normal. Systolic function is moderately reduced. The estimated ejection fraction is 35-39%. Regional wall motion abnormalities: Moderate global hypokinesis with inferior PATIENT NAME: SHERIDAN HEATON akinesis Grade I diastolic dysfunction. Right ventricle: The cavity size is normal. Systolic function is normal. The RV pressure during systole is 21 mm Hg. Left atrium: The atrium is normal in size. Right atrium: The atrium is normal in size. Aorta: Aortic root: The root is normal-sized. Aortic valve: The annulus is mildly calcified. The valve is trileaflet. There is no evidence of stenosis. There is no regurgitation. Mitral valve: The valve is structurally normal. There is no evidence of stenosis. There is no regurgitation. Tricuspid valve: The valve is structurally normal. There is trace regurgitation. Pulmonic valve: The valve is structurally normal. There is no regurgitation. Pericardium: There is no pericardial effusion. Pulmonary arteries: The main pulmonary artery is normal-sized. Systemic veins: Inferior vena cava: The IVC is normal-sized. Measurements Left ventricle Value Ref MERARI, LAX 2.8 cm 4.2 - 5.8 ESD, LAX 2.3 cm 2.5 - 4.0 FS, LAX 18 % 25 - 43 IVS, ED 0.9 cm 0.6 - 1.0 PW, ED 0.7 cm 0.6 - 1.0 IVS/PW, ED 1.22 --------- EF 39 % 52 - 72 E/e', avg, TDI 10 <=14 LVOT Value Ref Diam, S 2.33 cm --------- Area 4.3 cm 2 --------- Peak thaddeus, S 0.99 m/sec --------- Mean thaddeus, S 0.72 m/sec --------- VTI, S 17.7 cm --------- Peak grad, S 4 mm Hg --------- Mean grad, S 2 mm Hg --------- SV 75 ml --------- SV/bsa 31 ml/m 2 --------- Right ventricle Value Ref TAPSE, MM 1.9 cm >=1.7 Pressure, S 21 mm Hg --------- Left atrium Value Ref Vol/bsa, ES, 1-p A4C 12 ml/m 2 12 - 37 Vol/bsa, ES, A/L 13 ml/m 2 16 - 34 AP dim, ES MM 4.2 cm 3.0 - 4.0 LA/Ao root ratio, MM 1.21 --------- Aortic valve Value Ref PATIENT NAME: SHERIDAN HEATON Leaflet sep, MM 2.08 cm --------- Peak v, S 1.1 m/sec --------- Mean v, S 0.88 m/sec --------- VTI, S 18.9 cm --------- Mean grad, S 3 mm Hg --------- Peak grad, S 4.5 mm Hg --------- LVOT/AV, VTI ratio 0.93 --------- DOMITILA, VTI 3.97 cm 2 --------- LVOT/AV, Vpeak ratio 0.94 --------- DOMITILA, Vmax 3.98 cm 2 --------- Mitral valve Value Ref Mean v, D 0.57 m/sec --------- Peak E 0.65 m/sec --------- Peak A 0.92 m/sec --------- VTI leaflet coapt 22.0 cm --------- MiV/LVOT VTI 1.2 --------- Decel time 205 ms --------- Mean grad, D 2 mm Hg --------- Peak grad, D 4.1 mm Hg --------- Peak E/A ratio 0.7 --------- Tricuspid valve Value Ref TR peak v 2 m/sec <=2.8 Peak RV-RA grad, S 16 mm Hg --------- Aortic root Value Ref Root diam, ED MM 3.4 cm --------- Pulmonary artery Value Ref Pressure, S 17.9 mm Hg --------- Systemic veins Value Ref Estimated CVP 5 mm Hg --------- Pulmonary veins Value Ref A rev duration 106 ms --------- Conclusions Summary: 1. Left ventricle: The cavity size is normal. Wall thickness is normal. Systolic function is moderately reduced. The estimated ejection fraction is 35-39%. Moderate global hypokinesis with inferior akinesis Grade I diastolic dysfunction. 2. Aortic valve: The annulus is mildly calcified. The valve is trileaflet. Electronically signed by Alfie Davis MD 01/31/2025 16:04 PATIENT NAME: SHERIDAN HEATON at 1605 PATIENT NAME: SHERIDAN HEATON [facility] 2025-01-31 10:15:00 [facility]) Pulmonary Consultation Note REPORT#:[id number] REPORT STATUS: Signed REPORT INITIALIZATION DATE:01/31/25 TIME:1015 PATIENT: SHERIDAN HEATON UNIT #: [id number] ROOM/BED: [place] [address] : 60 AGE: 64 SEX: M ATTEND: Rito Lockwood MD ADM AUTHOR: Forrest Sanchez MD REPT SERVICE DT/TIME: 01/31/25 1015 * ALL edits or amendments must be made on the electronic/computer document * History of Present Illness HPI HPI: 64-year-old obese male with past medical history of hypertension, diabetes, ROBERT, pericarditis (2009), GI bleed/gastric ulcer, CAD s/p stent(2018), IBS-D and hyperlipidemia presented as a transfer from [facility] for management of high risk chest pain. Patient reports developing left-sided squeezing chest pain with radiation to left side of neck that began at around 6: 30 AM. Pain was also pleuritic. States it felt similar to his previous episode of pericarditis. . Patient reports having left-sided neck spasms intermittently for the last few weeks. Denies shortness of breath, Cath done and PCI left circiumflex History - Adult longitudinal Additional medical history: hypertension, diabetes, ROBERT, pericarditis (2010), CAD s/p stent, IBS-D, GI bleed/gastric ulcer and hyperlipidemia Additional surgical history: PCI with stent(2019 Neck tumor removal Bilateral eye surgery for macular holes Cataracts removal R rotator cuff surgery Hernia repair Cholecystectomy Left total knee replacement Left hammertoe surgery Colonoscopy/EGD Additional family history: Mother - from [place] at age 55, cancer Alcohol use: Alcohol use (3 to 7 drinks(rum) per day) Drug use: Denies recreational drugs Smoking status for patients 13 years old or older: Current some day smoker ( cigars) Date last smoked: 01/29/25 Allergies: Coded Allergies: naproxen (Mild, BLEEDING ULCER 01/31/25) Review of Systems All systems rev neg: except as marked Objective Physical Exam Vitals: Last Documented: Result Date Time Pulse Ox 95 01/31 09 FiO2 21 01/31 09 O2 Delivery Room air 01/31 927 B/P 126/70 01/31 830 B/P Mean 92 01/31 08 Pulse 87 01/31 08 Temp 36.6 01/31 0800 Resp 24 01/305 O2 Flow Rate 2 01/30 1931 General appearance: alert, awake, oriented ENT: ENT: normal ear right, normal nose, normal pharynx, normal sinus Neck: full range of motion, non-tender, supple/no meningismus, no JVD Respiratory/chest: clear to auscultation, no distress, no tenderness Abdomen: soft, non-tender, normal bowel sounds, no distention Extremities: no calf tenderness, no edema Results Findings/Data: Laboratory Tests 01/31/25 0032: [Embedded Image Not Available] 01/30/25 1911: [Embedded Image Not Available] Laboratory Tests 01/31 01/31 01/31 0756 0032 0032 Chemistry Sodium (136 - 145 mmol/L) 136 Potassium (3.4 - 5.0 mmol/L) 3.7 Chloride (98 - 107 mmol/L) 99 Carbon Dioxide (21 - 32 mmol/L) 28 Anion Gap (4 - 15 GAP calc) 9 BUN (7 - 18 MG/DL) 13 Creatinine (0.6 - 1.0 MG/DL) 0.9 Glomerular Filtr Rate (>60 estGFR) >=60 max estimate Glucose (70 - 110 MG/DL) 146 H POC Glucose (70 - 110 mg/dL) 186 H Hemoglobin A1c (4.8 - 6.0 % A1C) 6.5 H Estim Average Glucose (MG/DLest) 140 Calcium (8.5 - 10.1 MG/DL) 8.5 Phosphorus (2.5 - 4.9 MG/DL) 3.5 Magnesium (1.8 - 2.4 MG/DL) 1.6 L Total Bilirubin (0.0 - 1.0 MG/DL) 1.2 H AST (15 - 37 Unit/L) 23 ALT (30 - 65 Unit/L) 39 Total Alk Phosphatase (50 - 136 Unit/L) 103 Total Protein (6.4 - 8.2 G/DL) 6.7 Albumin (3.4 - 5.0 G/DL) 3.6 Globulin (GM/dL) 3.1 Albumin/Globulin Ratio (1.2 - 2.2 RATIO) 1.2 Triglycerides (0 - 150 MG/DL) 213 H Cholesterol (133 - 200 MG/DL) 129 L LDL Cholesterol Measurd (0 - 129 MG/DL) 57 Non-HDL Cholesterol (<130 mg/dL) 77 HDL Cholesterol (60 MG/DL) 52 L LDL/HDL Ratio (1.48 - 3.22 Avg Ratio) 1.09 L Cholesterol/HDL Ratio (0 RATIO) 2.48 01/30 1911 Chemistry Sodium (136 - 145 mmol/L) 138 Potassium (3.4 - 5.0 mmol/L) 4.0 Chloride (98 - 107 mmol/L) 99 Carbon Dioxide (21 - 32 mmol/L) 31 Anion Gap (4 - 15 GAP calc) 8 BUN (7 - 18 MG/DL) 15 Creatinine (0.6 - 1.0 MG/DL) 1.0 Glomerular Filtr Rate (>60 estGFR) >=60 max estimate Glucose (70 - 110 MG/DL) 154 H Calcium (8.5 - 10.1 MG/DL) 8.9 Total Creatine Kinase (21 - 215 Unit/L) 81 Troponin I High Sens (0 - 78 ng/L) 6.2 Laboratory Tests 01/30 Coagulation INR (0.8 - 1.2 INR Unit) 0.95 PTT ([place]) (26 - 35 SECONDS) 28.7 PT Patient/Control Mix (9.3 - 12.9 SECONDS) 10.6 Activated Coag Time (110 - 182 SEC) 292 H 361 H Laboratory Tests 01/31 Hematology WBC (3.5 - 11.0 K/mm3) 10.9 14.6 H RBC (4.70 - 6.10 M/mm3) 4.52 L 4.86 Hgb (12.3 - 15.9 G/DL) 13.9 15.3 Hct (35.8 - 46.7 %) 40.0 43.6 MCV (86.3 - 98.9 Fl) 88.5 89.7 MCH (28.9 - 34.4 pg) 30.8 31.5 MCHC (32.1 - 34.5 G/DL) 34.8 H 35.1 H RDW (11.5 - 14.5 SD) 12.3 12.2 Plt Count (150 - 450 K/mm3) 207 221 MPV (7.0 - 9.6 fL) 10.20 H 10.00 H Neut % (Auto) (40 - 76 %) 72.9 Lymph % (Auto) (20.5 - 51.1 %) 15.1 L [place] % (Auto) (1.7 - 9.3 %) 9.6 H Eos % (Auto) (0.0 - 6.0 %) 1.4 Baso % (Auto) (0.0 - 2.0 %) 0.4 Neut # (Auto) (1.8 - 7.6 K/mm3) 8.0 H Lymph # (Auto) (0.6 - 3.0 K/mm3) 1.7 [place] # (Auto) (0.2 - 1.5 K/mm3) 1.1 Eos # (Auto) (0.0 - 0.4 K/mm3) 0.2 Baso # (Auto) (0.0 - 0.2 K/mm3) 0.0 Abs Immat Gran (auto) (0.00 - 0.03 x10 3/uL) 0.07 H Immature Gran % (0.0 - 5.0 %) 0.6 Nucleated RBC % (0.0 - 1.0 /100WBC%) 0.0 Radiology Data: Recent Impressions: RADIOLOGY - XR CHEST 1 V 01/31 0554 Report Impression - Status: SIGNED Entered: 01/31/2025 0603 IMPRESSION: No acute cardiopulmonary findings. Impression By: Nenita - Isaak Lofton M.D. Diagnosis, Assessment Plan Free Text DxA P Notes Free Text DxA P Notes: 1.STEMI 2. DM 3. ROBERT on CPAP 13 cm H2O 4. HTN Seen examined patient SP STEnt DG to Tele PTOT fully independant plavix , ASA Start lovenox Chnage GI prophylaxis to pepcid CPAP QHS at 1212 RPT #: [id number] END OF REPORT [facility] 2025-01-31 08:08:00 [facility] ([facility]) Hospitalist Progress Note REPORT#:[id number] REPORT STATUS: Signed REPORT INITIALIZATION DATE:01/31/25 TIME:08 PATIENT: SHERIDAN HEATON UNIT #: [id number] ROOM/BED: [place] [address] : 60 AGE: 64 SEX: M ATTEND: Rito Lockwood MD ADM AUTHOR: Rito Lockwood MD REPT SERVICE DT/TIME: 01/31/25 08 * ALL edits or amendments must be made on the electronic/computer document * Subjective Chief complaint: chest pain HPI: 64-year-old obese male with past medical history of hypertension, diabetes, ROBERT, pericarditis (2009), GI bleed/gastric ulcer, CAD s/p stent(2018), IBS-D and hyperlipidemia presented as a transfer from [facility] for management of high risk chest pain. Patient reports developing left-sided squeezing chest pain with radiation to left side of neck that began at around 6: 30 AM. Pain was also pleuritic. States it felt similar to his previous episode of pericarditis. Pain was not relieved with nitro. Patient reports having left -sided neck spasms intermittently for the last few weeks. Denies shortness of breath, nausea or vomiting. Of note, pt reports having GI bleed 8 weeks ago showing 6 bleeding ulcers. Reports repeat EGD done 10 days ago showed no bleeding and healed ulcers. Pt has been on PPI. Outside ED workup: Stable vitals on presentation. Chest x-ray showed limited inspiration but no acute infiltrates or effusion. Labs remarkable for WBC 14.8 and blood glucose 154. EKG reported as no STEMI. Patient was given aspirin 324 mg, Plavix 300 mg, Rocephin, azithromycin and morphine 2 mg. On arrival to this ED vital signs stable. Labs remarkable for leukocytosis. EKG showed new ST elevation in lead II and V6 which was not seen prior to transfer from previous hospital. Code STEMI called and patient was emergently sent to [facility]. Full operative report pending but brief report showed PTCA and MARIELY placed in the left circumflex and PTCA of the RPDA sub-branch. Admitted to ICU for further management. Objective General VS/I O: Vital Signs: Date Time Temp Pulse Resp B/P B/P Pulse O2 O2 Flow FiO2 Mean Ox Delivery Rate 01/31 0927 95 Room air 01/31 0830 87 126/70 92 95 01/31 0816 93 127/68 92 95 01/31 0801 92 138/57 82 99 01/31 0800 97.9 97 Room air 01/31 0745 82 130/71 94 94 01/31 0730 83 138/76 100 94 01/31 0715 86 119/74 92 95 01/31 0700 82 123/56 83 94 01/31 0528 82 95 21 01/31 0400 97.8 01/31 0009 88 97 21 01/31 0009 97 Room air 21 01/30 2245 98.2 01/30 2215 85 24 125/74 95 Room air 01/30 2201 98.0 85 21 122/73 95 Room air 01/30 2146 87 25 119/71 95 Room air 01/30 1931 96 Nasal 2 cannula 01/30 1927 Nasal 2 cannula 01/30 1901 99 32 135/73 98 99 01/30 1837 98.1 97 17 136/81 97 Nasal 3 cannula 24 hour I O ending at 0700: 01/31 0700 01/30 1900 Intake Total Output Total 300 Balance -300 Output, Urine 300 Patient 261 lb Weight Weight Bed scale Measurement Method PATIENT WEIGHT: Weight (lb): Weight (oz): Weight (kg): 118.182 Medications: Active Meds + DC'd Last 24 Hrs Famotidine (PEPCID) 20 MG DAILY PO Heparin Sodium (Porcine) (HEPARIN SODIUM) 5,000 UNIT Q12H SUBQ Carvedilol (COREG) 12.5 MG Q12HR PO Lisinopril (ZESTRIL) 10 MG Q12HR PO Aspirin (ECOTRIN) 81 MG DAILY PO Clopidogrel Bisulfate (Plavix) 75 MG DAILY PO Dapagliflozin (Farxiga) 10 MG DAILY PO Folic Acid (FOLIC ACID) 1 MG DAILY PO Glipizide (GLUCOTROL) 5 MG DAILY PO Multivitamins Therapeutic (THERAGRAN) 1 TAB DAILY PO Mupirocin (BACTROBAN) 1 APPLIC BID NASAL Pantoprazole (PROTONIX) 40 MG DAILY PO (DC) Thiamine HCl (THIAMINE) 100 MG DAILY PO Insulin Human Lispro (Admelog) 0 AC HS SUBQ Perflutren Lipid Microsphere (DEFINITY) 2 ML ONCE PRN IV (CKD) Nitroglycerin (NITROSTAT) 0.4 MG Q5M PRN PRN SL Magnesium Oxide (MAG-OX 400) 1,200 MG ASDIR PRN PO (CKD) Magnesium Sulfate (MAGNESIUM SULFATE 2 G IN SWFI 50 ML) 50 ML ASDIR PRN IV Magnesium Sulfate (MAGNESIUM SULFATE) 4 GM ASDIR PRN IV Sodium Chloride (SODIUM CHLORIDE 0.9%) 100 ML Phosphorus (K-PHOS NEUTRAL) 1,500 MG ASDIR PRN PO Phosphorus (K-PHOS NEUTRAL) 2,000 MG ASDIR PRN PO Potassium Chloride (POTASSIUM CHLORIDE 10 MEQ/SWFI 50 ML) 50 ML ASDIR PRN IV Potassium Chloride (KCL 20 MEQ/SWFI 100 ML) 100 ML ASDIR PRN IV Potassium Chloride (KCL 20 MEQ/SWFI 100 ML) 100 ML ASDIR PRN IV Potassium Chloride (KCL 20 MEQ/SWFI 100 ML) 100 ML ASDIR PRN IV Potassium Chloride (K-DUR 20 mEq) 20 MEQ ASDIR PRN PO Potassium Chloride (K-DUR 20 mEq) 40 MEQ ASDIR PRN PO Potassium Phosphate (POTASSIUM PHOSPHATE) 20 MMOL ASDIR PRN IV Sodium Chloride (SODIUM CHLORIDE 0.9%) 250 ML Potassium Phosphate (POTASSIUM PHOSPHATE) 30 MMOL ASDIR PRN IV Sodium Chloride (SODIUM CHLORIDE 0.9%) 250 ML Sodium Biphosphate (SODIUM PHOSPHATE) 20 MMOL ASDIR PRN IV Sodium Chloride (SODIUM CHLORIDE 0.9%) 250 ML Sodium Biphosphate (SODIUM PHOSPHATE) 30 MMOL ASDIR PRN IV Sodium Chloride (SODIUM CHLORIDE 0.9%) 250 ML Sodium Phosphate (SODIUM PHOS 15 MMOL/ NS 250ML) 250 ML ASDIR PRN IV Undefined Medication (POTASSIUM PHOS 15 MMOL/ NS 250ML) 250 ML ASDIR PRN IV Acetaminophen (TYLENOL) 650 MG Q4H PRN PRN PO Hydrocodone Bitart/Acetaminophen (NORCO 5/325) 1 TAB Q6H PRN PRN PO Melatonin (Melatonin) 3 MG BEDTIME PRN PRN PO Ondansetron HCl (ZOFRAN) 4 MG Q6H PRN PRN IV Atorvastatin Calcium (LIPITOR) 80 MG BEDTIME PO Ticagrelor (BRILINTA) 0 .STK-MED ONE .ROUTE (DC) Midazolam HCl (VERSED) 0 .STK-MED ONE .ROUTE (DC) Metoprolol Tartrate (LOPRESSOR) 0 .STK-MED ONE .ROUTE (DC) Iopamidol (ISOVUE-300) 0 .STK-MED ONE .ROUTE (DC) Fentanyl Citrate (SUBLIMAZE) 0 .STK-MED ONE .ROUTE (DC) Heparin Sodium (Porcine) (HEPARIN 1,000 UNITS/NS 500 ML) 1,000 ML .STK-MED ONE IV (DC) Midazolam HCl (VERSED) 0 .STK-MED ONE .ROUTE (DC) Heparin Sodium (Porcine) (HEPARIN SODIUM) 0 .STK-MED ONE .ROUTE (DC) Heparin Sodium (Porcine) (HEPARIN 1,000 UNITS/NS 500 ML) 1,500 ML .STK-MED ONE IV (CAN) Iopamidol (ISOVUE-300) 0 .STK-MED ONE .ROUTE (DC) Nitroglycerin/Dextrose (NITROGLYCERIN 200 MCG/ML DRIP) 250 ML .STK-MED ONE IV (CAN) Mupirocin (BACTROBAN) 1 APPLIC DAILY NASAL (DC) Dietitian nutrition assessment The data set between the solid lines has been imported from the dietitian's assessment. BMI Calculated: 38.5 Nutrition related diagnosis: Nutrition diagnosis details: Nutrition problem: Nutrition etiology: Nutrition signs and symptoms: Nutrition prescription: Dietitian name: Assessment completed: Physical Exam General appearance: alert, awake Head/Eyes: atraumatic, normal conjunctiva/sclera, normocephalic, PERRL ENT: moist mucosal membranes, normal ear left, normal ear right, normal nose Neck: non-tender, supple/no meningismus, no masses or swelling Cardiovascular: normal capillary refill, normal heart sounds, regular rate rhythm Respiratory: aerating well, clear to auscultation, symmetric expansion, no distress Abdomen: non-tender, normal bowel sounds, soft, no guarding Extremities: moves all, no calf tenderness, no cyanosis Musculoskeletal: normal inspection, no CVA tenderness, no muscle spasm Neuro/BUTTONHOLE MAKER: alert, oriented X 3, normal speech, no motor deficits, no sensory deficits Skin: dry, normal color, normal temperature, dressing clean and intact in right groin Psychiatry: normal affect, normal judgment/insight, normal mood Results Findings/Data: Laboratory Tests 01/31 01/31 01/31 0756 0032 0032 Chemistry Sodium (136 - 145 mmol/L) 136 Potassium (3.4 - 5.0 mmol/L) 3.7 Chloride (98 - 107 mmol/L) 99 Carbon Dioxide (21 - 32 mmol/L) 28 Anion Gap (4 - 15 GAP calc) 9 BUN (7 - 18 MG/DL) 13 Creatinine (0.6 - 1.0 MG/DL) 0.9 Glomerular Filtr Rate (>60 estGFR) >=60 max estimate Glucose (70 - 110 MG/DL) 146 H POC Glucose (70 - 110 mg/dL) 186 H Hemoglobin A1c (4.8 - 6.0 % A1C) 6.5 H Estim Average Glucose (MG/DLest) 140 Calcium (8.5 - 10.1 MG/DL) 8.5 Phosphorus (2.5 - 4.9 MG/DL) 3.5 Magnesium (1.8 - 2.4 MG/DL) 1.6 L Total Bilirubin (0.0 - 1.0 MG/DL) 1.2 H AST (15 - 37 Unit/L) 23 ALT (30 - 65 Unit/L) 39 Total Alk Phosphatase (50 - 136 Unit/L) 103 Total Protein (6.4 - 8.2 G/DL) 6.7 Albumin (3.4 - 5.0 G/DL) 3.6 Globulin (GM/dL) 3.1 Albumin/Globulin Ratio (1.2 - 2.2 RATIO) 1.2 Triglycerides (0 - 150 MG/DL) 213 H Cholesterol (133 - 200 MG/DL) 129 L LDL Cholesterol Measurd (0 - 129 MG/DL) 57 Non-HDL Cholesterol (<130 mg/dL) 77 HDL Cholesterol (60 MG/DL) 52 L LDL/HDL Ratio (1.48 - 3.22 Avg Ratio) 1.09 L Cholesterol/HDL Ratio (0 RATIO) 2.48 01/30 1911 Chemistry Sodium (136 - 145 mmol/L) 138 Potassium (3.4 - 5.0 mmol/L) 4.0 Chloride (98 - 107 mmol/L) 99 Carbon Dioxide (21 - 32 mmol/L) 31 Anion Gap (4 - 15 GAP calc) 8 BUN (7 - 18 MG/DL) 15 Creatinine (0.6 - 1.0 MG/DL) 1.0 Glomerular Filtr Rate (>60 estGFR) >=60 max estimate Glucose (70 - 110 MG/DL) 154 H Calcium (8.5 - 10.1 MG/DL) 8.9 Total Creatine Kinase (21 - 215 Unit/L) 81 Troponin I High Sens (0 - 78 ng/L) 6.2 Laboratory Tests 01/30 Coagulation INR (0.8 - 1.2 INR Unit) 0.95 PTT ([place]) (26 - 35 SECONDS) 28.7 PT Patient/Control Mix (9.3 - 12.9 SECONDS) 10.6 Activated Coag Time (110 - 182 SEC) 292 H 361 H Laboratory Tests 01/31 Hematology WBC (3.5 - 11.0 K/mm3) 10.9 14.6 H RBC (4.70 - 6.10 M/mm3) 4.52 L 4.86 Hgb (12.3 - 15.9 G/DL) 13.9 15.3 Hct (35.8 - 46.7 %) 40.0 43.6 MCV (86.3 - 98.9 Fl) 88.5 89.7 MCH (28.9 - 34.4 pg) 30.8 31.5 MCHC (32.1 - 34.5 G/DL) 34.8 H 35.1 H RDW (11.5 - 14.5 SD) 12.3 12.2 Plt Count (150 - 450 K/mm3) 207 221 MPV (7.0 - 9.6 fL) 10.20 H 10.00 H Neut % (Auto) (40 - 76 %) 72.9 Lymph % (Auto) (20.5 - 51.1 %) 15.1 L [place] % (Auto) (1.7 - 9.3 %) 9.6 H Eos % (Auto) (0.0 - 6.0 %) 1.4 Baso % (Auto) (0.0 - 2.0 %) 0.4 Neut # (Auto) (1.8 - 7.6 K/mm3) 8.0 H Lymph # (Auto) (0.6 - 3.0 K/mm3) 1.7 [place] # (Auto) (0.2 - 1.5 K/mm3) 1.1 Eos # (Auto) (0.0 - 0.4 K/mm3) 0.2 Baso # (Auto) (0.0 - 0.2 K/mm3) 0.0 Abs Immat Gran (auto) (0.00 - 0.03 x10 3/uL) 0.07 H Immature Gran % (0.0 - 5.0 %) 0.6 Nucleated RBC % (0.0 - 1.0 /100WBC%) 0.0 Radiology data: Recent Impressions: RADIOLOGY - XR CHEST 1 V 01/31 0554 Report Impression - Status: SIGNED Entered: 01/31/2025 0603 IMPRESSION: No acute cardiopulmonary findings. Impression By: Nenita - Isaak Lofton M.D. Diagnosis, Assessment Plan Problem List/A P: 1. STEMI (ST elevation myocardial infarction) 2. Chest pain Free Text DxA P Notes Free text DxA P notes: Assessment/Plan #STEMI s/p PCI with stent to Left circumflex and PTCA of left circumflex and RPDA #Hx of CAD/[place] s/p PCI with stent(2019) #Chest pain Cardiology consulted in ED, patient sent emergently for cath with stent placement and angioplasty done. Full Op note pending Admit to ICU for post cardiac cath protocol. Makeup Sales Advisor consulted Pt took nitro at home. Given ASA 324mg and Plavix at previous facility Resume statin and ASA 81mg. Start Plavix and Coreg per Cardiology Initial EKG without STEMI at other facility. EKG here showed ST elevation in lead II andV6 PRN nitro or Crandall for pain Order hgbA1c and lipid panel Keep on telemetry Chest xray from outside facility with no acute significant findings #HX of GI bleed/gastric ulcer Pt with GI bleed 2 months ago. He has been back on his ASA 81mg since then Resume PPI Pt counseled on addition of Plavix to his ASA due to stent placement. Increased risk of bleeding and benefits due to stent placement/acute [place] discussed. Pt agreeable to being on Plavix and ASA and understands he needs to seek medical attention of signs of GI bleed noted. Pt to coordinate outpatient care on this with his Watch Caser and GI. #Hypertension Pt on Lisinopril and metoprolol at home. Hold home doses and continue current meds as started by Cardiology: Coreg and Lisinopril PRN hydralazine for elevated BP #DM type 2 Resume Glipizide. Start SSI Pt on Ozempic Order hgbA1c #HLD Resume statin #IBS-D Resume questran #ROBERT Cpap use at night #Obesity Collaborative Physician on diet and lifestyle modifications Pt on Ozempic #Tobacco use 1 cigar per week. Collaborative Physician cessation Declines nicotine patch #Alcohol dependence Drinks daily Collaborative Physician cessation Start thiamine, folic acid and multivitamin Monitor for signs of withdrawal VTE ppx: SCDs Full Code Dispo: likely dc home, pending clinical improvement Appreciate help from Cardiology S/p PCI Quality: Gen Med Crit Care VTE Prophylaxis VTE prophylaxis initiated: yes, no pharmacologic, reason: Current Medications Current medication review: I attest that the foregoing medication list in the medical record is true, accurate, and complete to the best of my knowledge. BMI Screening > 25 or < 18.5 BMI status/follow-up: abnl BMI, pt to F/U w/PCP at 1123 RPT #: [id number] END OF [facility] 2025-01-30 23:33:00 [facility] ([facility]) Hospitalist History Physical REPORT#:[id number] REPORT STATUS: Signed REPORT INITIALIZATION DATE:01/30/25 TIME:2332 PATIENT: SHERIDAN HEATON UNIT #: [id number] ROOM[address]BED: [address] : [address] AGE: 64 SEX: M ATTEND: Rito Lockwood MD ADM AUTHOR: Teresa Calvo REPT SERVICE DT/TIME: 01/30/25 2333 * ALL edits or amendments must be made on the electronic/computer document * Teresa Calvo 01/30/25 2333: History of Present Illness HPI Chief complaint: chest pain PCP: PCP: [facility] HPI: 64-year-old obese male with past medical history of hypertension, diabetes, ROBERT, pericarditis (2009), GI bleed/gastric ulcer, CAD s/p stent(2018), IBS-D and hyperlipidemia presented as a transfer from [facility] for management of high risk chest pain. Patient reports developing left-sided squeezing chest pain with radiation to left side of neck that began at around 6: 30 AM. Pain was also pleuritic. States it felt similar to his previous episode of pericarditis. Pain was not relieved with nitro. Patient reports having left -sided neck spasms intermittently for the last few weeks. Denies shortness of breath, nausea or vomiting. Of note, pt reports having GI bleed 8 weeks ago showing 6 bleeding ulcers. Reports repeat EGD done 10 days ago showed no bleeding and healed ulcers. Pt has been on PPI. Outside ED workup: Stable vitals on presentation. Chest x-ray showed limited inspiration but no acute infiltrates or effusion. Labs remarkable for WBC 14.8 and blood glucose 154. EKG reported as no STEMI. Patient was given aspirin 324 mg, Plavix 300 mg, Rocephin, azithromycin and morphine 2 mg. On arrival to this ED vital signs stable. Labs remarkable for leukocytosis. EKG showed new ST elevation in lead II and V6 which was not seen prior to transfer from previous hospital. Code STEMI called and patient was emergently sent to [facility]. Full operative report pending but brief report showed PTCA and MARIELY placed in the left circumflex and PTCA of the RPDA sub-branch. Admitted to ICU for further management. History Additional medical history: hypertension, diabetes, ROBERT, pericarditis (2010), CAD s/p stent, IBS-D, GI bleed /gastric ulcer and hyperlipidemia Additional surgical history: PCI with stent(2019 Neck tumor removal Bilateral eye surgery for macular holes Cataracts removal R rotator cuff surgery Hernia repair Cholecystectomy Left total knee replacement Left hammertoe surgery Colonoscopy/EGD Additional family history: Mother - from [place] at age 55, cancer Alcohol use: Alcohol use (3 to 7 drinks(rum) per day) Drug use: Denies recreational drugs Smoking status for patients 13 years old or older: Current some day smoker ( cigars) Medication/Allergy-Vaccine Hx Medications: Home Medications: Medication Dose/Rte/Freq Days Qty Entered Last Max Daily Dose Reviewed PANTOPRAZOLE DR 40 MG PO DAILY 01/30/25 01/30/25 (PROTONIX) 1923 1926 Strength: 40 MG TAB.DR NITROGLYCERIN 0.3 MG SL 01/30/25 01/30/25 (NITROSTAT) Q5M PRN PRN CHEST 1924 1926 Strength: 0.3 MG TAB.SL PAIN CHOLESTYRAMINE/ASPARTAME 2 GRAM PO 01/30/25 01/30/25 (PREVALITE) ONCE A DAY 1924 1926 Strength: 4 GRAM POWDER LISINOPRIL (ZESTRIL) 2.5 MG PO DAILY 01/30/25 01/30/25 Strength: 2.5 MG TAB 1924 1926 SEMAGLUTIDE 0.25 MG SUBQ Q7D 01/30/25 01/30/25 (OZEMPIC PEN (2 MG/3mL)) 1924 1926 Strength: 2 MG/3 ML PEN.INJCTR ATORVASTATIN (LIPITOR) 80 MG PO DAILY 01/30/25 01/30/25 Strength: 80 MG TAB 1925 1926 METOPROLOL TARTRATE 50 MG PO ONCE 01/30/25 01/30/25 (LOPRESSOR) 1925 1926 Strength: 50 MG TAB glipiZIDE (GLUCOTROL) 5 MG PO DAILY 01/30/25 01/31/25 Strength: 5 MG TAB 1924 31 Current Hospital Medications: fs Category Unknown Sig/Ellie Start time Last Medication Dose Route Stop Time Status Admin Melatonin 3 MG BEDTIME PRN PRN 01/30 2345 AC (Melatonin) PO 03/01 2344 Blood Formation,Coagulation Sig/Ellie Start time Last Medication Dose Route Stop Time Status Admin Clopidogrel Bisulfate 75 MG DAILY 01/31 0900 UNVr (Plavix) PO 03/02 0859 Ticagrelor 0 .STK-MED ONE 01/30 2025 DC (BRILINTA) .ROUTE Heparin Sodium 1,000 ML .STK-MED ONE 01/31 1944 DC (Porcine) IV (HEPARIN 1,000 UNITS/ NS 500 ML) Heparin Sodium 0 .STK-MED ONE 01/30 1927 DC (Porcine) .ROUTE (HEPARIN SODIUM) Heparin Sodium 1,500 ML .STK-MED ONE 01/30 1927 CAN (Porcine) IV (HEPARIN 1,000 UNITS/ NS 500 ML) Cardiovascular Drugs Sig/Ellie Start time Last Medication Dose Route Stop Time Status Admin Carvedilol 12.5 MG Q12HR 01/31 1000 AC (COREG) PO 03/02 959 Lisinopril 10 MG Q12HR 01/31 1000 AC (ZESTRIL) PO 03/02 959 Nitroglycerin 0.4 MG Q5M PRN PRN 01/31 215 UNV (NITROSTAT) SL 03/02 214 Atorvastatin Calcium 80 MG BEDTIME 01/30 2100 AC (LIPITOR) PO 03/01 2059 Metoprolol Tartrate 0 .STK-MED ONE 01/30 1954 DC (LOPRESSOR) .ROUTE Nitroglycerin/ 250 ML .STK-MED ONE 01/30 1927 CAN Dextrose IV (NITROGLYCERIN 200 MCG/ML DRIP) Central Nervous System Agents Sig/Ellie Start time Last Medication Dose Route Stop Time Status Admin Aspirin 81 MG DAILY 01/31 0900 AC (ECOTRIN) PO 03/02 0859 Magnesium Sulfate 50 ML ASDIR PRN 01/31 0200 UNV (MAGNESIUM SULFATE 2 IV 03/02 0159 G IN SWFI 50 ML) Magnesium Sulfate 4 GM ASDIR PRN 01/31 0200 UNV (MAGNESIUM SULFATE) IV 03/02 0159 Sodium Chloride 100 ML (SODIUM CHLORIDE 0.9%) Acetaminophen 650 MG Q4H PRN PRN 01/30 2345 AC (TYLENOL) PO 03/01 234 Hydrocodone Bitart/ 1 TAB Q6H PRN PRN 01/30 2345 AC Acetaminophen PO 02/10 2344 (NORCO 5/325) Midazolam HCl 0 .STK-MED ONE 01/30 2018 DC (VERSED) .ROUTE Fentanyl Citrate 0 .STK-MED ONE 01/31 1944 DC (SUBLIMAZE) .ROUTE Midazolam HCl 0 .STK-MED ONE 01/31 1944 DC (VERSED) .ROUTE Diagnostic Agents Sig/Ellie Start time Last Medication Dose Route Stop Time Status Admin Iopamidol 0 .STK-MED ONE 01/30 1953 DC (ISOVUE-300) .ROUTE Iopamidol 0 .STK-MED ONE 01/30 1927 DC (ISOVUE-300) .ROUTE Electrolytic, Caloric, And David Sig/Ellie Start time Last Medication Dose Route Stop Time Status Admin Phosphorus 1,500 MG ASDIR PRN 01/31 200 UNV (K-PHOS NEUTRAL) PO 03/02 159 Phosphorus 2,000 MG ASDIR PRN 01/31 200 UNV (K-PHOS NEUTRAL) PO 03/02 159 Potassium Chloride 50 ML ASDIR PRN 01/31 200 UNV (POTASSIUM CHLORIDE IV 03/02 159 10 MEQ/SWFI 50 ML) Potassium Chloride 100 ML ASDIR PRN 01/31 200 UNV (KCL 20 MEQ/SWFI 100 IV 03/02 159 ML) Potassium Chloride 100 ML ASDIR PRN 01/31 200 UNV (KCL 20 MEQ/SWFI 100 IV 03/02 159 ML) Potassium Chloride 100 ML ASDIR PRN 01/31 200 UNV (KCL 20 MEQ/SWFI 100 IV 03/02 159 ML) Potassium Chloride 20 MEQ ASDIR PRN 01/31 200 UNV (K-DUR 20 mEq) PO 03/02 159 Potassium Chloride 40 MEQ ASDIR PRN 01/31 200 UNV (K-DUR 20 mEq) PO 03/02 159 Potassium Phosphate 20 MMOL ASDIR PRN 01/31 200 UNV (POTASSIUM PHOSPHATE) IV 03/02 159 Sodium Chloride 250 ML (SODIUM CHLORIDE 0.9%) Potassium Phosphate 30 MMOL ASDIR PRN 01/31 200 UNV (POTASSIUM PHOSPHATE) IV 03/02 159 Sodium Chloride 250 ML (SODIUM CHLORIDE 0.9%) Sodium Biphosphate 20 MMOL ASDIR PRN 01/31 200 UNV (SODIUM PHOSPHATE) IV 03/02 159 Sodium Chloride 250 ML (SODIUM CHLORIDE 0.9%) Sodium Biphosphate 30 MMOL ASDIR PRN 01/31 200 UNV (SODIUM PHOSPHATE) IV 03/02 159 Sodium Chloride 250 ML (SODIUM CHLORIDE 0.9%) Sodium Phosphate 250 ML ASDIR PRN 01/31 200 UNV (SODIUM PHOS 15 MMOL/ IV 03/02 159 NS 250ML) Undefined Medication 250 ML ASDIR PRN 01/31 200 UNV (POTASSIUM PHOS 15 IV 05/21 0159 MMOL/ NS 250ML) Gastrointestinal Drugs Sig/Ellie Start time Last Medication Dose Route Stop Time Status Admin Pantoprazole 40 MG DAILY 01/31 0900 UNV (PROTONIX) PO 03/02 0859 Magnesium Oxide 1,200 MG ASDIR PRN 01/31 0200 UNV (MAG-OX 400) PO 03/02 0159 Ondansetron HCl 4 MG Q6H PRN PRN 01/30 2345 AC (ZOFRAN) IV 03/01 2344 Hormones And Synthetic Substit Sig/Ellie Start time Last Medication Dose Route Stop Time Status Admin Dapagliflozin 10 MG DAILY 01/31 09 AC (Farxiga) PO 03/02 0859 Glipizide 5 MG DAILY 01/31 09 UNV (GLUCOTROL) PO 03/02 0859 Insulin Human Lispro 0 AC HS 01/31 0730 UNV (Admelog) SUBQ 03/02 0729 Skin And Mucous Membrane Agent Sig/Ellie Start time Last Medication Dose Route Stop Time Status Admin Mupirocin 1 APPLIC DAILY 01/30 0143 AC (BACTROBAN) NASAL 02/07 0901 Allergies: Coded Allergies: naproxen (Mild, BLEEDING ULCER 01/31/25) Review of Systems Constitutional: Denies: fever, generalized weakness, lethargy. Skin: Denies: contusion, diaphoresis, ecchymosis. Allergy/Immun: Denies: hives, itching, rhinorrhea. Eyes: Denies: redness, itching, swelling. ENT: Denies: nasal congestion, sore throat, voice change. Respiratory: Denies: [place] (dyspnea on exertion), pleurisy, SOB, wheezing. Cardiovascular: chest pain. Denies: edema, palpitations. GI: Denies: abdominal pain, nausea, vomiting. : Denies: dysuria, flank pain, frequency, hematuria. Musculoskeletal: Denies: extremity pain, extremity swelling, lumbar pain, myalgias. Neuro: Denies: headache, lightheaded, numbness. Psych: Denies: confusion, delusional, depression. Objective General VS/I O: Vital Signs: Date Time Temp Pulse Resp B/P B/P Pulse O2 O2 Flow FiO2 Mean Ox Delivery Rate 01/30 2245 36.8 01/30 2215 85 24 125/74 95 Room air 04/20 2201 36.7 85 21 122/73 95 Room air 01/30 2146 87 25 119/71 95 Room air 01/30 1931 96 Nasal 2 cannula 01/30 1927 Nasal 2 cannula 01/30 1901 99 32 135/73 98 99 01/30 1837 36.7 97 17 136/81 97 Nasal 3 cannula PATIENT WEIGHT: Weight (lb): Weight (oz): Weight (kg): 118.182 Physical Exam General appearance: alert, awake, oriented, no acute distress Head/Eyes: atraumatic, normal conjunctiva/sclera, normocephalic, PERRL ENT: moist mucosal membranes, normal ear left, normal ear right, normal nose Neck: non-tender, supple/no meningismus, no masses or swelling Cardiovascular: normal capillary refill, normal heart sounds, regular rate rhythm Respiratory: aerating well, clear to auscultation, symmetric expansion, no distress Abdomen: non-tender, normal bowel sounds, soft, no guarding Extremities: moves all, no calf tenderness, no cyanosis Musculoskeletal: normal inspection, no CVA tenderness, no muscle spasm Neuro/BUTTONHOLE MAKER: alert, oriented X 3, normal speech, no motor deficits, no sensory deficits Skin: dry, normal color, normal temperature, dressing clean and intact in right groin Psychiatry: normal affect, normal judgment/insight, normal mood Results Findings/Data: Laboratory Tests 01/30 1911 Chemistry Sodium (136 - 145 mmol/L) 138 Potassium (3.4 - 5.0 mmol/L) 4.0 Chloride (98 - 107 mmol/L) 99 Carbon Dioxide (21 - 32 mmol/L) 31 Anion Gap (4 - 15 GAP calc) 8 BUN (7 - 18 MG/DL) 15 Creatinine (0.6 - 1.0 MG/DL) 1.0 Glomerular Filtr Rate (>60 estGFR) >=60 max estimate Glucose (70 - 110 MG/DL) 154 H Calcium (8.5 - 10.1 MG/DL) 8.9 Total Creatine Kinase (21 - 215 Unit/L) 81 Troponin I High Sens (0 - 78 ng/L) 6.2 Laboratory Tests 01/30 Coagulation INR (0.8 - 1.2 INR Unit) 0.95 PTT ([place]) (26 - 35 SECONDS) 28.7 PT Patient/Control Mix (9.3 - 12.9 SECONDS) 10.6 Activated Coag Time (110 - 182 SEC) 292 H 361 H Laboratory Tests 01/30 1911 Hematology WBC (3.5 - 11.0 K/mm3) 14.6 H RBC (4.70 - 6.10 M/mm3) 4.86 Hgb (12.3 - 15.9 G/DL) 15.3 Hct (35.8 - 46.7 %) 43.6 MCV (86.3 - 98.9 Fl) 89.7 MCH (28.9 - 34.4 pg) 31.5 MCHC (32.1 - 34.5 G/DL) 35.1 H RDW (11.5 - 14.5 SD) 12.2 Plt Count (150 - 450 K/mm3) 221 MPV (7.0 - 9.6 fL) 10.00 H Results: chest xray pending Diagnosis, Assessment Plan Free Text DxA P Notes Free Text DxA P Notes: Assessment/Plan #STEMI s/p PCI with stent to Left circumflex and PTCA of left circumflex and RPDA #Hx of CAD/[place] s/p PCI with stent(2018) #Chest pain Cardiology consulted in ED, patient sent emergently for cath with stent placement and angioplasty done. Full Op note pending Admit to ICU for post cardiac cath protocol. Makeup Sales Advisor consulted Pt took nitro at home. Given ASA 324mg and Plavix at previous facility Resume statin and ASA 81mg. Start Plavix and Coreg per Cardiology Initial EKG without STEMI at other facility. EKG here showed ST elevation in lead II andV6 PRN nitro or Crandall for pain Order hgbA1c and lipid panel Keep on telemetry Chest xray from outside facility with no acute significant findings #HX of GI bleed/gastric ulcer Pt with GI bleed 2 months ago. He has been back on his ASA 81mg since then Resume PPI Pt counseled on addition of Plavix to his ASA due to stent placement. Increased risk of bleeding and benefits due to stent placement/acute [place] discussed. Pt agreeable to being on Plavix and ASA and understands he needs to seek medical attention of signs of GI bleed noted. Pt to coordinate outpatient care on this with his Watch Caser and GI. #Hypertension Pt on Lisinopril and metoprolol at home. Hold home doses and continue current meds as started by Cardiology: Coreg and Lisinopril PRN hydralazine for elevated BP #DM type 2 Resume Glipizide. Start SSI Pt on Ozempic Order hgbA1c #HLD Resume statin #IBS-D Resume questran #ROBERT Cpap use at night #Obesity Collaborative Physician on diet and lifestyle modifications Pt on Ozempic #Tobacco use 1 cigar per week. Collaborative Physician cessation Declines nicotine patch #Alcohol dependence Drinks daily Collaborative Physician cessation Start thiamine, folic acid and multivitamin Monitor for signs of withdrawal VTE ppx: SCDs Full Code Dispo: likely dc home, pending clinical improvement Quality: Gen Med Crit Care VTE Prophylaxis VTE prophylaxis initiated: yes, no pharmacologic, reason: Current Medications Current medication review: I attest that the foregoing medication list in the medical record is true, accurate, and complete to the best of my knowledge. BMI Screening > 25 or < 18.5 Patient's BMI: Current BMI: 38.5 BMI status/follow-up: abnl BMI, pt to F/U w/PCP at 0757 at 0808 RPT #: [id number] END OF [facility] 2025-01-30 19:02:00 [facility] ([facility]) EMERGENCY PROVIDER REPORT REPORT#:[id number] REPORT STATUS: Signed DATE:01/30/25 TIME:1901 PATIENT: SHERIDAN HEATON UNIT #: [id number] ROOM/BED: [place] [address] : 60 AGE: 64 SEX: M PCP PHYS: No Primary or Family Physician SERVICE AUTHOR: Kristin Palomo MD REP SRV REP SRV TM: 1901 * ALL edits or amendments must be made on the electronic/computer document * HPI-Chest Pain 40 and Over Free Text HPI Notes Free Text HPI Notes The patient is a 64-year-old male with history of hypertension, diabetes, pericarditis, hyperlipidemia, and coronary artery disease s/p PCI in 1999, presenting today as transfer from [facility] for further evaluation of chest pain. Patient states his pain began at approximately 0630 this morning; constant; sternal; nonradiating. Described as a pressure/squeezing sensation. Feels like it is similar to his prior episode of pericarditis. Not relieved with 3 sublingual nitro taken at home. On arrival to outside hospital, patient's EKG and troponin were reportedly not concerning for acute STEMI. Outside hospital interventions: Aspirin 324 Plavix 300 Rocephin 1 g Azithromycin 500 mg Morphine 2 On reassessment of patient at [facility], patient endorses chest pain 5/10 in severity. No nausea/vomiting General Initial Greet Date/Time 01/30/251835 Presentation Chief Complaint Chest pain Hx Obtained From Patient Sudden in Onset? Yes )( Migration/Movement None Risk-Chest Pain 40 and Over Risk Stratification )( Coronary Artery Disease Risk factors reviewed )( Thoracic Aortic Dissection Risk factors reviewed )( Pulmonary Embolism Risk factors reviewed )( AMI-Aspirin Aspirin Last 24 Hrs 324 mg, OSH )( HEART for MACE )( HEART for MACE Response Value History Mod index of suspicion [address]-depression 2 Age Age 45 - 65 1 Risk Factors for CAD 3+ CAD risk factors 2 Troponin < or = to NL troponin 0 Total 6 HEART Score for MACE 4-7 (mod risk 12%-16.6%) Review of Systems ROS Statements All systems rev neg except as marked. Focused Review of Systems Constitutional Denies: Chills, Fever. Respiratory Denies: Shortness of breath. Cardiovascular Reports: Chest pain. Denies: Edema. GI Denies: Abdominal pain, Nausea, Vomiting. Neurologic Denies: Focal weakness, Lightheaded, Numbness, Syncope. Past Medical History - Adult Stated Complaint CHEST PAIN- TRANSFER FROM [facility] Allergies Coded Allergies: naproxen (BLEEDING ULCER 01/30/25) Home Medications Reported Medications PANTOPRAZOLE DR (PROTONIX) 40 MG PO DAILY NITROGLYCERIN (NITROSTAT) 0.3 MG SL Q5M PRN PRN CHEST PAIN CHOLESTYRAMINE/ASPARTAME (PREVALITE) 2 GRAM PO ONCE A DAY LISINOPRIL (ZESTRIL) 2.5 MG PO DAILY SEMAGLUTIDE (OZEMPIC PEN (2 MG/3mL)) 0.25 MG SUBQ Q7D ATORVASTATIN (LIPITOR) 80 MG PO DAILY METOPROLOL TARTRATE (LOPRESSOR) 50 MG PO ONCE glipiZIDE (GLUCOTROL) 5 MG PO DAILY Smoking status for patients 13 years old or older: Current some day smoker Physical Exam Vital Signs Vital Signs First Documented: Result Date Time Pulse Ox 97 01/30 1837 B/P 136/81 01/30 1837 O2 Delivery Nasal cannula 01/30 1837 O2 Flow Rate 3 01/30 1837 Temp 98.1 01/30 1837 Pulse 97 01/30 1837 Resp 17 01/30 1837 B/P Mean 98 01/30 1901 Last Documented: Result Date Time Pulse Ox 96 01/30 1931 O2 Delivery Nasal cannula 01/30 1931 O2 Flow Rate 2 01/30 1931 B/P 135/73 01/30 1901 B/P Mean 98 01/30 1901 Pulse 99 01/30 1901 Resp 32 01/30 1901 Temp 98.1 01/30 1837 Review of Vital Signs Reviewed Free Text PE Notes Free Text PE Notes General appearance: Alert and oriented. Well appearing. No acute distress. Head: Normocephalic. Atraumatic. Ears: Non traumatic. No swelling or erythema. Hearing intact. Eyes: PERRL. EOMI. No scleral icterus or conjunctival injection. Nose: No discharge. No bleeding Neck: Trachea midline. No hematomas. No JVD Resp: Clear to auscultation. No wheezing/crackles/rales. Symmetric chest rising. No respiratory distress CVS: Normal rate and rhythm. No M/G/R. Peripheral pulses normal GI: Soft. Non distended. Non tender to palpation. MSK: No extremity edema. Non tender to palpation. Neuro: Alert and oriented. No slurred speech. Utilizing all extremities. Skin: No clubbing. No rashes. No cyanosis. Warm. Interpretation Diagnostics Lab Results Interpretation Considerations Independ review imaging Results Laboratory Tests 01/30/251910: [Embedded Image Not Available] Laboratory Tests: 01/30 Chemistry Sodium (136 - 145 mmol/L) 138 Potassium (3.4 - 5.0 mmol/L) 4.0 Chloride (98 - 107 mmol/L) 99 Carbon Dioxide (21 - 32 mmol/L) 31 Anion Gap (4 - 15 GAP calc) 8 BUN (7 - 18 MG/DL) 15 Creatinine (0.6 - 1.0 MG/DL) 1.0 Glomerular Filtr Rate (>60 estGFR) >=60 max estimate Glucose (70 - 110 MG/DL) 154 H Calcium (8.5 - 10.1 MG/DL) 8.9 Total Creatine Kinase (21 - 215 Unit/L) 81 Troponin I High Sens (0 - 78 ng/L) 6.2 Coagulation INR (0.8 - 1.2 INR Unit) 0.95 PTT ([place]) (26 - 35 SECONDS) 28.7 PT Patient/Control Mix (9.3 - 12.9 SECONDS) 10.6 Hematology WBC (3.5 - 11.0 K/mm3) 14.6 H RBC (4.70 - 6.10 M/mm3) 4.86 Hgb (12.3 - 15.9 G/DL) 15.3 Hct (35.8 - 46.7 %) 43.6 MCV (86.3 - 98.9 Fl) 89.7 MCH (28.9 - 34.4 pg) 31.5 MCHC (32.1 - 34.5 G/DL) 35.1 H RDW (11.5 - 14.5 SD) 12.2 Plt Count (150 - 450 K/mm3) 221 MPV (7.0 - 9.6 fL) 10.00 H Lab Imaging Statement Laboratory radiographic studies reviewed and considered in the medical decision-making. Point of Care Testing Pulse Oximetry Pulse Ox % 97 On: Room air Interpretation Interpreted by me, Pulse oximetry normal Time 1837 ECG #1 Interpretation Text/Dict Note Rate 97 bpm Left axis deviation ST elevation lead II, V6 ST depression in aVR Concern for acute STEMI TX 142, QRS 74, QTc 449 Date 01/30/25 Time 1848 Interpreted by and reviewed by me, Independently interpreted, ED physician Re-Evaluation MDM Free Text MDM Notes Free Text MDM Notes The patient is a 64-year-old male with above-mentioned past medical history, presenting today as transfer from outside hospital for workup of high risk chest pain. On presentation, the patient is stable and in no acute distress. Vital signs nonactionable. EKG obtained upon arrival to emergency department notable for new ST elevation in lead V6 that was not present at outside hospital. STEMI alert activated and cardiology notified. Plan to take patient directly to [facility]. Problems addressed: STEMI Chest pain Consults: Cardiology Plan: Patient taken to [facility] ICU admission ED Course Medication(s) Ordered Medication(s) Ordered: Blood Formation,Coagulation Sig/Ellie Start time Last Medication Dose Route Stop Time Status Admin Clopidogrel Bisulfate 75 MG DAILY 01/31 900 UNV PO 03/02 0859 Heparin Sodium 0 .STK-MED ONE 01/30 1927 DC (Porcine) .ROUTE Heparin Sodium 1,500 ML .STK-MED ONE 01/30 1927 CANr (Porcine) IV Cardiovascular Drugs Sig/Ellie Start time Last Medication Dose Route Stop Time Status Admin Atorvastatin Calcium 80 MG BEDTIME 01/30 2100 UNV PO 03/01 2059 Nitroglycerin/ 250 ML .STK-MED ONE 01/30 1927 CANr Dextrose IV Central Nervous System Agents Sig/Ellie Start time Last Medication Dose Route Stop Time Status Admin Aspirin 81 MG DAILY 01/31 900 UNV PO 03/02 0859 Diagnostic Agents Sig/Ellie Start time Last Medication Dose Route Stop Time Status Admin Iopamidol 0 .STK-MED ONE 01/30 1927 DC .ROUTE Skin And Mucous Membrane Agent Sig/Ellie Start time Last Medication Dose Route Stop Time Status Admin Mupirocin 1 APPLIC DAILY 01/30 1943 UNVr NASAL 02/08 901 Consultation Consultation Referral/Consult Name Alfie Davis MD Alligator Shear Operator Called Wheel Roller Discussed with animal nutrition consultant, Requested construction or leak gang laborer Requested Call Time 185 Requested Call Date 01/30/25 Differential Diagnosis )( Differential Diagnosis Acute coronary syndrome, Acute myocardial infarct, Anxiety disorder, Aortic stenosis, Bronchitis, Chest pain, acute, Congestive heart failure, Costochondritis, Dysrhythmia, Mitral stenosis, Musculoskeletal pain, Myocardial infarction, Myocarditis, Pericarditis, Pneumonia, Pneumothorax, Pulmonary edema, Pulmonary embolism Findings/Social Determinants Presentation Acute Severity Evaluation Life-threatening, Serious condition Relevant Comorbidities Coronary artery disease Patient Discharge Departure Vital Signs/Condition Vital Signs First Documented: Result Date Time Pulse Ox 97 01/30 1837 B/P 136/81 01/30 1837 O2 Delivery Nasal cannula 01/30 1837 O2 Flow Rate 3 01/30 1837 Temp 98.1 01/30 1837 Pulse 97 01/30 1837 Resp 17 01/30 1837 B/P Mean 98 01/30 190 Last Documented: Result Date Time Pulse Ox 96 01/30 1931 O2 Delivery Nasal cannula 01/30 1931 O2 Flow Rate 2 01/30 1931 B/P 135/73 01/30 1901 B/P Mean 98 01/30 190 Pulse 99 01/30 1901 Resp 32 01/30 1901 Temp 98.1 01/30 1837 All vital signs available at the time of this entry have been reviewed. Clinical Impression Clinical Impression Primary Impression: STEMI (ST elevation myocardial infarction) Secondary Impressions: Chest pain Disposition Decision Hospitalize Hosp Physician Name Rito Lockwood MD [facility] Physician Hospitalist Request Time 1940 Request Date 01/30/25 )( Accepts Hospitalization Yes )( Reason for Hospitalization STEMI )( Accepted Time 1940 )( Accepted Date 01/30/25 Call Information will see patient Critical Care Time Spent (minutes): 35 Services Performed Patient management by me, Time spent at bedside, Reviewing test results, Reviewing imaging, Discussing patient care, Documentation in record Separately billable procedures excluded from time. Patient was critically ill due to: Acute ST elevated myocardial infarction with possibility of cardiovascular collapse My treatment and management were: Cardiac monitoring Discussed with consultants Interpretation of outside imaging and labs ICU admission for further management CC Note 1 Total critical care time 35 minutes. Total critical care time documented does not include time spent on separately billed procedures or the services of residents, students, nurses or physician assistants. I personally saw and examined the patient. I have reviewed all diagnostic interpretations and treatment plans as written. I was present for the narayan portions of any procedures performed and the inclusive time noted in any critical care statement. Critical care time includes patient management by me, time spent at the patients bedside, time to review lab and imaging results, discussing patient care, documentation in the medical record, and time spent with the family or caregiver. Quality Measures 12-Lead ECG for CP Performed documented at 0115 [facility] #: [id number] END OF REPORT [facility]
== END 2025-03-01 19:32 | disposition home or self-care (01) ==
LOC: ER 16:00
DX: M25.512 Pain in left shoulder (principal); M25.511 Pain in right shoulder; R07.89 Other chest pain; M54.2 Cervicalgia; I25.2 Old myocardial infarction
CPT/HCPCS: 36415; 71045; 80048; 83735; 84484; 85025; 93005; 99284

== ENCOUNTER 2025-03-03 13:21 | Emergency (ER) | payer OTHER ==
--- OUTSIDE RECORDS SUMMARY | 2025-03-03 13:24 | XMS REPORT | Continuity of Care Document ---
Author Name Unknown Address [address] [place] [address] Address [address] [facility] [address] [place] [address] Care Team Providers Care Wool Hat Flanger Name Role Phone Rito Lockwood Attending Clinician Unavailable Rito Lockwood Admitting Clinician Unavailable Physician, No Primary or Family Admitting Clinic juan Unavailable Payers Payer Name Policy Type Policy Number Effective Date Expirati on Date Source Allergies, Adverse Reactions, Alerts Allergy Name Allergy Type Status Severity Reaction(s) Onset Date Inactive Date Treating Clinician Comments Source naproxen DA Active [facility] 01-31 00:00: 00 [facility] naproxen DA Active [facility] 01-30 00:00: 00 [facility] Procedures Procedure Date / Time Performed Performing Clinicia n Source GAIT TRAINING/AMBULAT TREATMENT USING ASSIST EQUIP 2025-01-31 00:00:00 [email or web address] [facility] DILATION OF 1 COR ART WITH DRUG-ELUT INTRA, PERC A 2025-01-30 00:00:00 [email or web address] [facility] DILATION OF CORONARY ARTERY, ONE ARTERY, PERC APPR 2025-01-30 00:00:00 [email or web address] [facility] MEASURE OF CARDIAC SAMPL PRESSURE, L HEART, PERC 2025-01-30 00:00:00 [email or web address] [facility] FLUOROSCOPY OF MULT COR ART USING L OSM CONTRAST 2025-01-30 00:00:00 [email or web address] [facility] Encounters Start Date/Time End Date/Time Encounter Type Admission Type Attending Clinicians Care Facility Care Department Encounter ID Source 2025-01-30 19:42:00 2025-02-01 11:29:00 Inpatient EM Rito Lockwood HCAPM INTE [id number] 29 [facility] 2025-01-31 05:26:00 2025-01-31 05:26:00 Outpatient Rito Lockwood HCACL LABO [id number] 82 [facility] Results Test Description Test Time Test Comments Results Result Co mments Source BASIC METABOLIC [id number] 03:49:00* Test Item Value Reference Range Interpretation [...] code = CA) 8.9 MG/DL 8.5-10.1 N [id number] 03:49:00* Test Item Value Reference Range Interpretation Comme nts PHOSPHOROUS (test code = PHOS) 4.4 MG/DL 2.5-4.9 N [id number] 03:49:00* Test Item Value Reference Range Interpretation Comme nts MAGNESIUM (test code = MAG) 2.3 MG/DL 1.8-2.4 N CBC W/AUTO [id number] 03:39:00* Test Item Value Reference Range Interpretation [...] NRBC#) 0.0 K/mm3 0.00-0.01 N GLUCOSE BEDSIDE [id number] 20:45:00* Test Item Value Reference Range Interpretation Comme nts GLUCOSE BEDSIDE TESTING (michael t code = GLUBED) 171 mg/dL 70-110 H GLUCOSE BEDSIDE [id number] 17:37:00* Test Item Value Reference Range Interpretation Comme nts GLUCOSE BEDSIDE TESTING (michael t code = GLUBED) 129 mg/dL 70-110 H GLUCOSE BEDSIDE [id number] 12:13:00* Test Item Value Reference Range Interpretation Comme nts GLUCOSE BEDSIDE TESTING (michael t code = GLUBED) 124 mg/dL 70-110 H GLUCOSE BEDSIDE [id number] 08:05:00* Test Item Value Reference Range Interpretation Comme nts GLUCOSE BEDSIDE TESTING (michael t code = GLUBED) 186 mg/dL 70-110 H CBC W/AUTO [id number] 01:51:00* Test Item Value Reference Range Interpretation [...] code = NRBC#) 0.0 K/mm3 0.00-0.01 N [id number] 01:13:00* Test Item Value Reference Range Interpretation Comme nts GLYCOSYLATED HEMOGLOBIN (HA1 C) (test code = GLYHGB) 6.5 % A1C 4.8-6.0 H ESTIMATED AVERAGE GLUCOSE (t est code = EAG) 140 MG/DLest COMPREHENSIVE METABOLIC [id number] 01:12:00* Test Item Value Reference Range Interpretation [...] = HDL) 52 MG/DL See_Comment L [Automated [employer] [place] [employer]] The system which generated this result transmitted reference range: 60-. The reference range was not used to interpret this result as normal/abnormal. NON-HDL CHOLESTEROL (test code = NHDL) 77 mg/dL <130 LIPOPROTEIN LDL (test code = LDL) 57 MG/DL 0-129 N LDL/HDL (test code = LDL/HDL) 1.09 Ratio See_Comment L [Automated [employer] [place] [employer]] The system which generated this result transmitted reference range: 1.48-3.22 Avg. The reference range was not used to interpret this result as normal/abnormal. [id number] 01:12:00* Test Item Value Reference Range Interpretation Comme nts PHOSPHOROUS (test code = PHOS) 3.5 MG/DL 2.5-4.9 N [id number] 01:12:00* Test Item Value Reference Range Interpretation Comme nts MAGNESIUM (test code = MAG) 1.6 MG/DL 1.8-2.4 L COAGULATION TIME [id number] 20:27:00* Test Item Value Reference Range Interpretation Comme nts COAGULATION TIME ACTIVATED ( test code = ACT) 292 SEC 110-182 H COAGULATION TIME [id number] 20:02:00* Test Item Value Reference Range Interpretation Comme nts COAGULATION TIME ACTIVATED ( test code = ACT) 361 SEC 110-182 H PROTHROMBIN [id number] 19:40:00* Test Item Value Reference Range Interpretation [...] Infarction (to prevent recurrent infarct). THROMBOPLASTIN TIME [id number] 19:40:00* Test Item Value Reference Range Interpretation Comme nts THROMBOPLASTIN TIME PARTIAL (test code = PTT) 28.7 SECONDS 26-35 N BASIC METABOLIC [id number] 19:35:00* Test Item Value Reference Range Interpretation [...] CK) 81 Unit/L 21-215 N TROP-I HIGH [id number] 19:35:00* Test Item Value Reference Range Interpretation [...] and URLs may varyby method. CBC W/O [id number] 19:19:00* Test Item Value Reference Range Interpretation [...] Notes Date/Time Note Provider Source 2025-02-01 08:45:00 [facility] ([facility]) Pulmonology Progress Note REPORT#:[id number] REPORT STATUS: Signed REPORT INITIALIZATION DATE:02/01/25 TIME:844 PATIENT: SHERIDAN HEATON UNIT #: [id number] ROOM/BED: [place] [address] : 60 AGE: 64 SEX: M ATTEND: Rito Lockwood MD ADM AUTHOR: Forrest Sanchez MD REPT SERVICE DT/TIME: 02/01/25 0845 * ALL edits or amendments must be made on the electronic/computer document * Subjective Chief complaint: no chest pain No distress HPI: 64-year-old obese male with past medical history of hypertension, diabetes, ROBERT, pericarditis (2010), GI bleed/gastric ulcer, CAD s/p stent(2019), IBS-D and hyperlipidemia presented as a transfer from [facility] for management of high risk chest pain. [...] (Auto) (20.5 - 51.1 %) 19.0 L [place] % (Auto) (1.7 - 9.3 %) 8.4 Eos % (Auto) (0.0 - 6.0 %) 2.8 Baso % (Auto) (0.0 - 2.0 %) 0.6 Neut # (Auto) (1.8 - 7.6 K/mm3) 5.3 Lymph # (Auto) (0.6 - 3.0 K/mm3) 1.5 [place] # (Auto) (0.2 - 1.5 K/mm3) 0.7 [...] to F/U w/PCP at 0923 RPT #: [id number] END OF REPORT [facility] 2025-02-01 08:43:00 [facility] ([facility]) Hospitalist Discharge Summary REPORT#:[id number] REPORT STATUS: Signed REPORT INITIALIZATION DATE:02/01/25 TIME:842 PATIENT: SHERIDAN HEATON UNIT #: [id number] ROOM/BED: [place] [id number] : 60 AGE: 64 SEX: M ATTEND: [...] of left circumflex and RPDA #Hx of CAD/VA s/p PCI with stent(2019) #Chest pain Cardiology consulted in ED, patient sent emergently for cath with stent placement and angioplasty done. Full Op note pending Admit to ICU for post cardiac cath protocol. Cord Maker consulted Pt took nitro at home. Given ASA 324mg and Plavix at previous facility Resume statin and ASA 81mg. Start Plavix and Coreg per Cardiology Initial EKG without STEMI at other facility. EKG here showed ST elevation in lead II andV6 PRN nitro or [place] for pain Order hgbA1c and lipid panel [...] bleeding and benefits due to stent placement/acute [facility] discussed. Pt agreeable to being on Plavix and ASA and understands he needs to seek medical attention of signs of GI bleed noted. Pt to coordinate outpatient care on this with his Mac Developer and GI. #Hypertension Pt on Lisinopril and metoprolol at home. Hold home doses and continue current meds as started by Cardiology: Coreg and Lisinopril PRN hydralazine for elevated BP #DM type 2 Resume Glipizide. 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 Start thiamine, folic acid and multivitamin [...] inspection, no CVA tenderness, no muscle spasm Neuro/MAINFRAME ANALYST: alert, oriented X 3, normal speech, no motor deficits, no sensory deficits Skin: dry, normal color, normal temperature, dressing clean and intact in right groin Psychiatry: normal affect, normal judgment/insight, normal mood Discharge Instructions PCP Discharge to: Home/Self Care Additional Discharge Routines: PCP Follow-Up, Data Security Coordinator Follow-Up Diet: Resume Home Diet/Feeds Discharge management: [...] abnl BMI, pt to F/U w/PCP at [address] [place] [address] #: [phone] END OF REPORT [facility] 2025-01-31 16:05:00 [id number] [facility] [address] [place] [address] PATIENT NAME: SHERIDAN HEATON ADMIT DATE: 01/30/25 ACCOUNT NO: [id number] ROOM NO: L.ICU02 AGE: 64 REPORT TYPE: eECHOCARDIOGRAM REPORT SEX: M ADMITTING PHYSICIAN: Rito Lockwood MD ATTENDING PHYSICIAN: Rito Lockwood MD *[facility]* [address] [place] [id number] Transthoracic Echocardiogram Patient: Sheridan Heaton Study Date: 01/31/2025 BP: 125 / 74 URN: [id number] Location: : 1960 Age: 64 Gender: M Height: 68.9 in / 175 cm Weight: 260.4 lb / 118.1 kg BMI/BSA: 38.6 kg/m 2 / 2.45 m 2 *Ordering Physician: * Teresa Calvo Pa-C *Interpreting Physician: * Alfie Davis MD *Salesperson Burial Plots: * Nandini Garcia Indications: ACS. Study data: [...] The valve is trileaflet. Electronically signed by lAfie Davis MD 01/31/2025 16:04 PATIENT NAME: SHERIDAN HEATON at 1605 PATIENT NAME: SHERIDAN HEATON [facility] 2025-01-31 10:15:00 [facility]) Pulmonary Consultation Note REPORT#:[id number] REPORT STATUS: Signed REPORT INITIALIZATION DATE:01/31/25 TIME:1015 PATIENT: SHERIDAN HEATON UNIT #: [id number] ROOM/BED: [place] [address] : 60 AGE: 64 SEX: M ATTEND: [...] and hyperlipidemia presented as a transfer from [facility] for management of high risk chest pain. [...] Colonoscopy/EGD Additional family history: Mother - [facility] age 55, cancer Alcohol use: Alcohol [...] Result Date Time Pulse Ox 95 01/31 927 FiO2 21 01/31 09 O2 Delivery Room air 01/31 927 B/P 126/70 01/31 830 B/P Mean 92 01/31 08 Pulse 87 01/31 08 Temp 36.6 01/31 0800 Resp 24 01/30 2215 O2 Flow Rate [...] 01/31/25 0032: [Embedded Image Not Available] 01/30/25 191: [Embedded Image Not Available] Laboratory Tests 01/31 [...] (0.8 - 1.2 INR Unit) 0.95 PTT (Yael) (26 - 35 SECONDS) 28.7 PT Patient/Control [...] (Auto) (20.5 - 51.1 %) 15.1 L [place] % (Auto) (1.7 - 9.3 %) 9.6 H Eos % (Auto) (0.0 - 6.0 %) 1.4 Baso % (Auto) (0.0 - 2.0 %) 0.4 Neut # (Auto) (1.8 - 7.6 K/mm3) 8.0 H Lymph # (Auto) (0.6 - 3.0 K/mm3) 1.7 [place] # (Auto) (0.2 - 1.5 K/mm3) 1.1 [...] pepcid CPAP QHS at 1212 RPT #: [id number] END OF REPORT [facility] 2025-01-31 08:08:00 [facility] ([facility]) Hospitalist Progress Note REPORT#:[id number] REPORT STATUS: Signed REPORT INITIALIZATION DATE:01/31/25 TIME:08 PATIENT: SHERIDAN HEATON UNIT #: [id number] ROOM/BED: [place] [address] : 60 AGE: 64 SEX: M ATTEND: Rito Lockwood MD ADM AUTHOR: Rito Lockwood MD REPT SERVICE DT/TIME: 01/31/25 0808 * ALL edits or amendments must be made on the electronic/computer document * Subjective Chief complaint: chest pain HPI: 64-year-old obese male with past medical history of hypertension, diabetes, ROBERT, pericarditis (2009), GI bleed/gastric ulcer, CAD s/p stent(2018), IBS-D and hyperlipidemia presented as a transfer from [facility] for management of high risk chest pain. [...] called and patient was emergently sent to Guest Services Attendant. Full operative report pending but brief report [...] inspection, no CVA tenderness, no muscle spasm Neuro/MAINFRAME ANALYST: alert, oriented X 3, normal speech, no [...] (0.8 - 1.2 INR Unit) 0.95 PTT (Lares) (26 - 35 SECONDS) 28.7 PT Patient/Control [...] (Auto) (20.5 - 51.1 %) 15.1 L [place] % (Auto) (1.7 - 9.3 %) 9.6 H Eos % (Auto) (0.0 - 6.0 %) 1.4 Baso % (Auto) (0.0 - 2.0 %) 0.4 Neut # (Auto) (1.8 - 7.6 K/mm3) 8.0 H Lymph # (Auto) (0.6 - 3.0 K/mm3) 1.7 [place] # (Auto) (0.2 - 1.5 K/mm3) 1.1 [...] of left circumflex and RPDA #Hx of CAD/VA s/p PCI with stent(2019) #Chest pain Cardiology consulted in ED, patient sent emergently for cath with stent placement and angioplasty done. Full Op note pending Admit to ICU for post cardiac cath protocol. Cord Maker consulted Pt took nitro at home. Given ASA 324mg and Plavix at previous facility Resume statin and ASA 81mg. Start Plavix and Coreg per Cardiology Initial EKG without STEMI at other facility. EKG here showed ST elevation in lead II andV6 PRN nitro or [place] for pain Order hgbA1c and lipid panel [...] bleeding and benefits due to stent placement/acute [facility] discussed. Pt agreeable to being on Plavix and ASA and understands he needs to seek medical attention of signs of GI bleed noted. Pt to coordinate outpatient care on this with his Mac Developer and GI. #Hypertension Pt on Lisinopril and metoprolol at home. Hold home doses and continue current meds as started by Cardiology: Coreg and Lisinopril PRN hydralazine for elevated BP #DM type 2 Resume Glipizide. 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 Start thiamine, folic acid and multivitamin [...] to F/U w/PCP at 1123 RPT #: [id number] END OF REPORT [facility] 2025-01-30 23:33:00 [facility] ([facility]) Hospitalist History Physical REPORT#:[id number] REPORT STATUS: Signed REPORT INITIALIZATION DATE:01/30/25 TIME:2332 PATIENT: SHERIDAN HEATON UNIT #: [id number] ROOM/BED: [place] [address] : 60 AGE: 64 SEX: M ATTEND: Rito Lockwood MD ADM AUTHOR: Teresa Calvo REPT SERVICE DT/TIME: 01/30/25 5693 * ALL edits or amendments must be made on the electronic/computer document * Teresa Calvo 01/30/25 6793: History of Present Illness HPI Chief complaint: chest pain PCP: PCP: [facility] HPI: 64-year-old obese male with past medical history of hypertension, diabetes, ROBERT, pericarditis (2009), GI bleed/gastric ulcer, CAD s/p stent(2018), IBS-D and hyperlipidemia presented as a transfer from [facility] for management of high risk chest pain. [...] called and patient was emergently sent to Guest Services Attendant. Full operative report pending but brief report [...] Colonoscopy/EGD Additional family history: Mother - from [facility] at age 55, cancer Alcohol use: Alcohol [...] .ROUTE Heparin Sodium 1,000 ML .STK-MED ONE 04/20 1944 DC (Porcine) IV (HEPARIN 1,000 UNITS/ [...] PRN 01/30 2345 AC (TYLENOL) PO 03/01 2344 Hydrocodone Bitart/ 1 TAB Q6H PRN PRN [...] UNV (KCL 20 MEQ/SWFI 100 IV 03/02 015 ML) Potassium Chloride 20 MEQ ASDIR PRN [...] Status Admin Pantoprazole 40 MG DAILY 01/31 09 UNV (PROTONIX) PO 03/02 0859 Magnesium Oxide [...] 03/02 0859 Glipizide 5 MG DAILY 01/31 900 UNV (GLUCOTROL) PO 03/02 0859 Insulin Human [...] O2 Flow FiO2 Mean Ox Delivery Rate 01/305 36.8 01/30 2215 85 24 125/74 95 [...] inspection, no CVA tenderness, no muscle spasm Neuro/MAINFRAME ANALYST: alert, oriented X 3, normal speech, no [...] (0.8 - 1.2 INR Unit) 0.95 PTT (Lares) (26 - 35 SECONDS) 28.7 PT Patient/Control [...] of left circumflex and RPDA #Hx of CAD/VA s/p PCI with stent(2019) #Chest pain Cardiology consulted in ED, patient sent emergently for cath with stent placement and angioplasty done. Full Op note pending Admit to ICU for post cardiac cath protocol. Cord Maker consulted Pt took nitro at home. Given ASA 324mg and Plavix at previous facility Resume statin and ASA 81mg. Start Plavix and Coreg per Cardiology Initial EKG without STEMI at other facility. EKG here showed ST elevation in lead II andV6 PRN nitro or [place] for pain Order hgbA1c and lipid panel [...] bleeding and benefits due to stent placement/acute [facility] discussed. Pt agreeable to being on Plavix and ASA and understands he needs to seek medical attention of signs of GI bleed noted. Pt to coordinate outpatient care on this with his Mac Developer and GI. #Hypertension Pt on Lisinopril and metoprolol at home. Hold home doses and continue current meds as started by Cardiology: Coreg and Lisinopril PRN hydralazine for elevated BP #DM type 2 Resume Glipizide. 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 Start thiamine, folic acid and multivitamin [...] w/PCP at 0757 at 0808 RPT #: [id number] END OF REPORT [facility] 2025-01-30 19:02:00 [facility] ([facility]) EMERGENCY PROVIDER REPORT REPORT#:[id number] REPORT STATUS: Signed DATE:01/30/25 TIME:1901 PATIENT: SHERIDAN HEATON UNIT #: [id number] ROOM/BED: [place] [address] : 60 AGE: 64 SEX: M PCP [...] in 1999, presenting today as transfer from [facility] for further evaluation of chest pain. [...] Morphine 2 On reassessment of patient at [facility], patient endorses chest pain 5/10 in severity. [...] Adult Stated Complaint CHEST PAIN- TRANSFER FROM [facility] Allergies Coded Allergies: naproxen (BLEEDING ULCER 01/30/25) [...] (0.8 - 1.2 INR Unit) 0.95 PTT (Yael) (26 - 35 SECONDS) 28.7 PT Patient/Control [...] depression in aVR Concern for acute STEMI MD 142, QRS 74, QTc 449 Date 01/30/25 [...] notified. Plan to take patient directly to Guest Services Attendant. Problems addressed: STEMI Chest pain Consults: Cardiology Plan: Patient taken to Guest Services Attendant ICU admission ED Course Medication(s) Ordered Medication(s) [...] Consultation Consultation Referral/Consult Name Alfie Davis MD Data Security Coordinator Called Grade [employer] Teacher Discussed with production consultant, Requested micro lab analyst Requested Call Time 1857 Requested Call Date 01/30/25 Differential Diagnosis )( [...] Hospitalize Hosp Physician Name Rito Lockwood MD [facility] Physician Hospitalist Request Time 1940 Request Date [...] ECG for CP Performed documented at 0115 [facility] #: [id number] END OF REPORT [facility]
--- NOTE | 2025-03-03 14:14 | RAD REPORT ---
EXAMINATION: ONE VIEW CHEST XR CLINICAL INDICATION: syncope TECHNIQUE: Frontal chest projection is submitted. Examination is limited by patient positioning and t echnique. COMPARISON: No prior exam. FINDINGS: The lungs are well inflated and clear. The heart is upper limit of normal in size. No displaced fract ures identified. IMPRESSION: No acute intrathoracic abnormalities.
--- NOTE | 2025-03-03 14:17 | RAD REPORT ---
EXAM: CT brain without contrast HISTORY: SYNCOPE COMPARISON: None TECHNIQUE: Multiple contiguous axial images were obtained and a CT of the brain without contrast. Sag ittal and coronal reformats were performed. One or more of the following dose reduction techniques were used: Automated exposure control, adjust ment of the mA and/or kV according to patient size, and/or iterative reconstruction. FINDINGS: No evidence of hydrocephalus, intracranial hemorrhage, or extra-axial fluid collection. Mild brain atrophy with mild periventricular and deep white matter chronic microvascular ischemic ch anges present. No evidence of midline shift or areas of brain edema. The calvarium is intact. The visualized paranasal sinuses and mastoid air cells are essentially clear . Vertebral atherosclerosis. IMPRESSION: No evidence of acute intracranial abnormality.
[2025-03-03 15:47] LABS: Absolute Basophils 0.1 K/uL (0-0.5); Absolute Eosinophils 0.3 K/uL (0-0.5); Absolute Lymphocytes (CBC) 1.4 K/uL (0.7-4.9); Absolute Monocytes 0.7 K/uL (0.1-1.3); Absolute Neutrophil 5.3 K/uL (1.8-8.0); Basophils % 1.4 % (0-1.3); Eosinophils % 4.3 % (0-4.4); Hemoglobin 15.8 g/dL (13.6-17.9); Lymphocytes % 17.7 % (15.3-44.8); MCH 31.2 pg (27.0-35.0); MCHC 35.7 g/dL (32.0-36.0); MCV 87.4 fL (80-100); MPV 8.1 fL (7.6-11.3); Monocytes % 9.1 % (3.3-12.3); Neutrophils % 67.5 % (41.7-73.7); Nucleated Red Blood Cells % 0.1 % (0-0); Platelets 200 thou/uL (152-406); RBC Red Blood Cell Count 5.05 M/uL (4.33-5.43); Red Cell Distribution Width 13.3 % (12.1-15.2)
[2025-03-03 16:07] LABS: Albumin 4.3 g/dL (3.4-5.0); Albumin/Globulin Ratio 1.2 (1.1-1.8); Anion Gap 10.8 mEq/L (5.0-15.0); Bilirubin Direct 0.2 mg/dL (0-0.2); Bilirubin Indirect, Calculated 0.9 mg/dL (0.2-0.8); Bilirubin Total 1.1 mg/dL (0.2-1.0); Globulin 3.6 g/dL (2.3-3.5); Potassium 3.8 mEq/L (3.5-5.1); Protein, Total 7.9 g/dL (6.4-8.2); Troponin High Sensitivity 3.5 pg/mL (<58.9)
[2025-03-03 16:08] LABS: Hematocrit 45.5 % (39.6-49.0)
[2025-03-03 16:13] LABS: PT Prothrombin Time 10.6 SECONDS (10-13.0); Protime INR 0.93
--- NOTE | 2025-03-03 16:55 | EDPHYS ---
Physician Documentation [facility] Name: Enrico Flaherty Age: 64 yrs Sex: Male : 1960 Arrival Date: 03/03/2025 Time: 13:21 Bed 4 Private MD: ED Physician Mónica Fried HPI: 03/03 13:37 This 64 yrs old Male presents to ER via Unassigned with complaints of Dizziness. sp3 16:47 This 64 yrs old Male presents to ER via Ambulatory with complaints of near syncope. sp3 16:47 64-year-old male with history of hypertension, diabetes, prior SD recently discharged sp3 now presents to the ED with chief complaint near syncope. Patient states that he has been able to conduct his ADLs but occasionally gets these episodes. No full syncope reported. He denies any chest pain, shortness of breath, jaw pain, left arm pain, nausea, vomiting, back pain or any other anginal equivalents. He also denies fever, trauma, abdominal pain, trauma, bleeding, or any other signs or symptoms on ROS at this time.. Historical: - Allergies: 13:41 Naproxen; ll1 - PMHx: 13:41 Hypertensive disorder; Hypercholesterolemia; Diabetes mellitus; Myocardial infarction; ll1 ulcers; - PSHx: 13:41 heart stents; Coronary Angioplasty; ulcers; knee replacement; ll1 - Immunization history:: Adult Immunizations up to date. - Infectious Disease History:: Denies. - Social history:: Smoking status: Patient reports the use of cigarette tobacco products, cigars. ROS: 16:51 Constitutional: Negative for fever, chills, and weight loss, Eyes: Negative for injury, sp3 pain, redness, and discharge, ENT: Negative for injury, pain, and discharge, Neck: Negative for injury, pain, and swelling, Cardiovascular: Negative for chest pain, palpitations, and edema, Respiratory: Negative for shortness of breath, cough, wheezing, and pleuritic chest pain, Abdomen/GI: Negative for abdominal pain, nausea, vomiting, diarrhea, and constipation, Back: Negative for injury and pain, MS/Extremity: Negative for injury and deformity, Skin: Negative for injury, rash, and discoloration, Psych: Negative for depression, anxiety, suicide ideation, homicidal ideation, and hallucinations, Allergy/Immunology: Negative for hives, rash, and allergies, Endocrine: Negative for neck swelling, polydipsia, polyuria, polyphagia, and marked weight changes, 16:51 All other systems are negative, Exam: 16:52 Constitutional: This is a well developed, well nourished patient who is awake, alert, sp3 and in no acute distress. Head/Face: Normocephalic, atraumatic. Eyes: Pupils equal round and reactive to light, extra-ocular motions intact. Lids and lashes normal. Conjunctiva and sclera are non-icteric and not injected. Cornea within normal limits. Periorbital areas with no swelling, redness, or edema. ENT: Nares patent. No nasal discharge, no septal abnormalities noted. External auditory canals are clear. Oropharynx with no redness, swelling, or masses, exudates, or evidence of obstruction, uvula midline. Mucous membranes moist. Neck: Trachea midline, no thyromegaly or masses palpated, and no cervical lymphadenopathy. Supple, full range of motion without nuchal rigidity, or vertebral point tenderness. No Meningismus. Chest/axilla: Normal chest wall appearance and motion. Nontender with no deformity. No lesions are appreciated. Cardiovascular: Regular rate and rhythm with a normal S1 and S2. No gallops, murmurs, or rubs. Normal PMI, no JVD. No pulse deficits. Respiratory: Lungs have equal breath sounds bilaterally, clear to auscultation and percussion. No rales, rhonchi or wheezes noted. No increased work of breathing, no retractions or nasal flaring. Abdomen/GI: Soft, non-tender, with normal bowel sounds. No distension or tympany. No guarding or rebound. No evidence of tenderness throughout. Back: No spinal tenderness. No costovertebral tenderness. Full range of motion. Skin: Warm, dry with normal turgor. Normal color with no rashes, no lesions, and no evidence of cellulitis. MS/ Extremity: Pulses equal, no cyanosis. Neurovascular intact. Full, normal range of motion. Neuro: Awake and alert, GCS 15, oriented to person, place, time, and situation. Cranial nerves II-XII grossly intact. Motor strength 5/5 in all extremities. Sensory grossly intact. Cerebellar exam normal. Normal gait. Psych: Awake, alert, with orientation to person, place and time. Behavior, mood, and affect are within normal limits. 16:52 ECG was reviewed by the Attending Physician. EKG demonstrates normal sinus rhythm at 82 bpm with normal intervals, normal QRS, normal axis, nonspecific diffuse ST/T changes without evidence of acute ischemia. Vital Signs: 13:39 BP 147 / 92; Pulse 89; Resp 16; Temp 97.5; Pulse Ox 99% ; Weight 114.31 kg; Height 5 ll1 ft. 9 in. ; Pain 7/10; 15:34 BP 118 / 55; Pulse 76; Resp 16; Pulse Ox 98% ; Pain 0/10; iw 16:05 BP 119 / 76 Supine; Pulse 77; Resp 16; Pulse Ox 99% ; iw 16:10 BP 115 / 80 Sitting; Pulse 79; iw 16:12 BP 123 / 84 Standing; Pulse 81; Resp 16; Pulse Ox 99% on R/A; iw 17:08 BP 118 / 83; Pulse 78; Resp 18; Temp 97.9; Pulse Ox 98% on R/A; ph 13:39 Body Mass Index 37.21 (114.31 kg, 175.26 cm) ll1 13:39 Pain Scale: Adult ll1 15:34 Pain Scale: Adult iw MDM: 13:36 Medical Screening Exam initiated sp3 16:53 Data reviewed: vital signs, nurses notes, old medical records, lab test result(s), EKG, sp3 radiologic studies. ED course: 64-year-old male with near syncope as a presenting complaint per differential diagnosis includes orthostatic hypotension, viral illness, recurrent ACS type picture, electrolyte abnormality, metabolic disturbance, dehydration, among others. Full workup negative which included CT scan of the head, EKG, general labs. Vital signs are completely normal. [facility]. Patient is okay with going home and we will safely discharge him home at this time. All symptoms currently resolved.. 03/03 13:39 Order name: Basic Metabolic Panel; Complete Time: 16:41 sp3 03/03 13:39 Order name: CBC with Diff; Complete Time: 16:41 sp3 03/03 13:39 Order name: Hepatic Function; Complete Time: 16:41 sp3 03/03 13:39 Order name: Magnesium; Complete Time: 16:41 sp3 03/03 13:39 Order name: Protime (+inr); Complete Time: 16:41 sp3 03/03 13:39 Order name: Ptt, Activated; Complete Time: 16:41 sp3 03/03 13:39 Order name: Troponin High Sensitivity; Complete Time: 16:41 3 03/03 13:39 Order name: CT Head Brain wo Cont; Complete Time: 14:59 sp3 03/03 13:39 Order name: Chest Single View XRAY; Complete Time: 14:59 3 03/03 13:39 Order name: Cardiac monitoring; Complete Time: 16:16 sp3 03/03 13:39 Order name: EKG - Nurse/Tech; Complete Time: 15:34 sp3 03/03 13:39 Order name: IV Saline Lock; Complete Time: 15:34 3 03/03 13:39 Order name: Labs collected and sent; Complete Time: 15:34 sp3 03/03 13:39 Order name: NPO; Complete Time: 15:34 3 03/03 13:39 Order name: O2 Per Protocol; Complete Time: 15:34 3 03/03 13:39 Order name: O2 Sat Monitoring; Complete Time: 15:34 sp3 03/03 13:39 Order name: Orthostatics; Complete Time: 16:16 sp3 Administered Medications: No medications were administered Disposition Summary: 03/03/25 16:54 Discharge Ordered Notes: Location: Home sp3 Condition: Stable sp3 Diagnosis - Near syncope sp3 Followup: sp3 - With: Private Physician - When: Upon discharge from the Emergency Department - Reason: Continuance of care Discharge Instructions: - Discharge Summary Sheet sp3 - Near-Syncope sp3 Forms: - Medication Reconciliation Form sp3 - Antibiotic Education sp3 - Prescription Opioid Use sp3 - Patient Portal Instructions sp3 - Leadership Thank You Letter sp3 Signatures: Dispatcher [employer] EDDenisa Guthrie RN RN Diana Arroyo RN RN ll1 Mónica Fried MD MD sp3 Corrections: (The following items were deleted from the chart) 13:40 13:39 BASIC METABOLIC PANEL+C.LAB.BRZ ordered. EDMS EDMS 13:40 13:39 CBC+H.LAB.BRZ ordered. EDMS EDMS 13:40 13:39 HEPATIC FUNCTION+C.LAB.BRZ ordered. EDMS EDMS 13:40 13:39 MAGNESIUM+C.LAB.BRZ ordered. EDMS EDMS 13:40 13:39 PROTIME (+INR)+COAG.LAB.BRZ ordered. EDMS EDMS : 13:39 PTT, ACTIVATED+COAG.LAB.BRZ ordered. EDMS EDMS : 13:40 Troponin High Sensitivity+C.LAB.BRZ ordered. EDMS EDMS : 13:40 Head Brain Wo Cont+CT.RAD.BRZ ordered. EDMS EDMS : 13:40 Chest Single View+RAD.RAD.BRZ ordered. EDMS EDMS
--- NOTE | 2025-03-03 16:55 | ER ---
Nurse's Notes [facility] Name: Enrico Flaherty Age: 64 yrs Sex: Male : 1960 Arrival Date: 03/03/2025 Time: 13:21 Bed 4 Private MD: Diagnosis: Near syncope Presentation: 03/03 13:39 Chief complaint: Patient states: Dizziness yesterday, resolved. Then returned today. No ll1 fever. Coronavirus screen: Client denies travel out of the [place] in the last 14 days. At this time, the client does not indicate any symptoms associated with coronavirus-19. Ebola Screen: Patient denies travel to an Ebola-affected area in the 21 days before illness onset. Initial Sepsis Screen: Does the patient meet any 2 criteria? No. Patient's initial sepsis screen is negative. Does the patient have a suspected source of infection? No. Patient's initial sepsis screen is negative. Risk Assessment: Do you want to hurt yourself or someone else? Patient reports no desire to harm self or others. Onset of symptoms was March 02, 2025. 13:39 Method Of Arrival: Ambulatory ll1 13:39 Acuity: LARS 3 ll1 Triage Assessment: 13:41 General: Appears uncomfortable, Behavior is calm, cooperative, appropriate for age. ll1 Pain: Denies pain. Neuro: Reports dizziness. Historical: - Allergies: 13:41 Naproxen; ll1 - PMHx: 13:41 Hypertensive disorder; Hypercholesterolemia; Diabetes mellitus; Myocardial infarction; ll1 ulcers; - PSHx: 13:41 heart stents; Coronary Angioplasty; ulcers; knee replacement; ll1 - Immunization history:: Adult Immunizations up to date. - Infectious Disease History:: Denies. - Social history:: Smoking status: Patient reports the use of cigarette tobacco products, cigars. Screenin:[facility] ED Fall Risk Assessment (Adult) History of falling in the last 3 months, iw including since admission No falls in past 3 months (0 pts) Confusion or Disorientation No (0 pts) Intoxicated or Sedated No (0 pts) Impaired Gait No (0 pts) Mobility Assist Device Used No (0 pt) Altered Elimination No (0 pt) Score/Fall Risk Level 0 - 2 = Low Risk Oriented to surroundings, Maintained a safe environment. Abuse screen: Denies threats or abuse. Denies injuries from another. Nutritional screening: No deficits noted. Tuberculosis screening: No symptoms or risk factors identified. Assessment: 15:50 General: Appears in no apparent distress. comfortable, Behavior is calm, cooperative. iw Neuro: Level of Consciousness is awake, alert, obeys commands, Oriented to person, place, time, situation, Moves all extremities. Full function Reports dizziness, since yesterday paresthesias in chest, right arm and left arm resolved. Cardiovascular: Patient's skin is warm and dry. Respiratory: Respiratory effort is even, unlabored, Respiratory pattern is regular, symmetrical. Derm: Skin is intact, is healthy with good turgor. Musculoskeletal: Range of motion: intact in all extremities. Vital Signs: 13:39 BP 147 / 92; Pulse 89; Resp 16; Temp 97.5; Pulse Ox 99% ; Weight 114.31 kg; Height 5 ll1 ft. 9 in. ; Pain 7/10; 15:34 BP 118 / 55; Pulse 76; Resp 16; Pulse Ox 98% ; Pain 0/10; iw 16:05 BP 119 / 76 Supine; Pulse 77; Resp 16; Pulse Ox 99% ; iw 16:10 BP 115 / 80 Sitting; Pulse 79; iw 16:12 BP 123 / 84 Standing; Pulse 81; Resp 16; Pulse Ox 99% on R/A; iw 17:08 BP 118 / 83; Pulse 78; Resp 18; Temp 97.9; Pulse Ox 98% on R/A; ph 13:39 Body Mass Index 37.21 (114.31 kg, 175.26 cm) ll1 13:39 Pain Scale: Adult ll1 15:34 Pain Scale: Adult iw Vitals: 15:34 Cardiac Rhythm Assessment Regular. iw ED Course: 13:24 Patient arrived in ED. mr 13:28 Mónica Fried MD is Attending Physician. sp3 13:41 Triage completed. ll1 13:41 Arm band placed on. ll1 13:54 CT Head Brain wo Cont In Process Unspecified. EDMS 14:08 Chest Single View XRAY In Process Unspecified. EDMS 15:17 Pastora Hobbs, RN is Primary Nurse. iw 15:34 Initial lab(s) drawn, by me, sent to lab. EKG done, by ED staff, reviewed by Mónica Fried MD. Inserted saline lock: 20 gauge in left antecubital area, using aseptic technique. Blood collected. Flushed with 10 mL NS. 15:51 Patient has correct armband on for positive identification. Client placed on continuous iw cardiac and pulse oximetry monitoring. NIBP monitoring applied. monitoring specialist on. 17:08 No provider procedures requiring assistance completed. IV discontinued, intact, ph bleeding controlled, No redness/swelling at site. Pressure dressing applied. Administered Medications: No medications were administered Medication: 15:51 VIS not applicable for this client. iw Outcome: 16:54 Discharge ordered by sp3 17:08 Discharged to home ambulatory, ph 17:08 Condition: good 17:08 Discharge instructions given to patient, Instructed on discharge instructions, follow up and referral plans. Demonstrated understanding of instructions, follow-up care, 17:09 Patient left the ED. ph Signatures: Dispatcher [employer] EDMS Shabana Dhillon, Reg Reg mr Pastora Hobbs, RN LEODAN iw Denisa Shore RN RN Diana Thornton RN RN ll1 Mónica Fried MD MD sp3 Corrections: (The following items were deleted from the chart) 16:13 16:12 BP 123 / 84; Pulse 81bpm; Resp 16bpm; Pulse Ox 99% RA; iw iw
[2025-03-03 18:07] VITALS: BP 118/83; TEMP 97.9; O2SAT 98
== END 2025-03-03 17:09 | disposition home or self-care (01) ==
LOC: ER 13:21
DX: R55 Syncope and collapse (principal); I10 Essential (primary) hypertension; E11.9 Type 2 diabetes mellitus without complications; E78.00 Pure hypercholesterolemia, unspecified; I25.2 Old myocardial infarction; F17.200 Nicotine dependence, unspecified, uncomplicated
CPT/HCPCS: 36415; 70450; 71045; 80048; 80076; 83735; 84484; 85025; 85610; 85730; 93005; 99284